=== PATIENT | female | born 1990 | race Caucasian/White ===

== ENCOUNTER 2017-05-27 10:10 | Emergency (ER) | payer OTHER ==
[~2017-05-27] VITALS: Ht 165.1 cm; Wt 116.0 kg
[2017-05-27 10:24] VITALS: TEMP 37; Ht 165.1 cm; Wt 116.0 kg
[2017-05-27] MEDS ORDERED: BCPILLS PO (11:32)
[2017-05-27] MEDS ORDERED: ZNTT/150 PO (11:32)
[2017-05-27] MEDS ORDERED: CITA10TA8 PO (11:32)
[2017-05-27] MEDS ORDERED: MECL1TAB42 PO (11:32)
--- NOTE | 2017-05-27 11:35 | EMERGENCY ROOM VISIT NOTE ---
History First contact with patient: 10:51 Chief Complaint: NEEDLE STICK Stated Complaint: CUT THUMB ON DIRTY INSTRUMENT;WORKERS COMP Nursing Triage Summary: was cleaning dirty instruments and picked up a pair of scissors and has a lac to left thumb. History of Present Illness The patient is a 26 year old female who presents to the Emergency Room with complaints of "cut thumb on dirty instrument". 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 The source patient is identified. The attending physician who performed surgery on the patient is Dr. Clark. The patient notes her tetanus is up-to-date. There is minimal tingling at the location of the small laceration. Review of Systems A complete 6-point Review of Systems was discussed with the patient, with pertinent positives and negatives listed in the History of Present Illness. All remaining Review of Systems questions can be considered negative unless otherwise specified. Past Medical/Surgical History Noncontributory Family History Noncontributory. Social History Smoking Status: Never Smoker Patient was locally with family. Current/Historical Medications Scheduled Control Pills ( Control Pills), 1 TAB PO DAILY Citalopram Hydrobromide (Celexa), Unknown Dose PO DAILY Meclizine Hcl (Meclizine Hcl), 1 TAB PO DAILY Scheduled PRN Ranitidine (Zantac), Unknown Dose PO BID PRN for Nausea Physical Exam Vital Signs Date Time Temp Pulse Resp B/P (MAP) Pulse Ox O2 Delivery O2 Flow Rate FiO2 05/27/17 11:40 80 16 126/84 98 05/27/17 10:24 37.0 80 16 126/84 98 Room Air Physical Exam VITAL SIGNS - Vital signs and nursing notes were reviewed. Stable. GENERAL -26-year-old female appearing her stated age who is in no acute distress. Communicates well with provider and answers questions appropriately. SKIN - Without rashes. No petechial rashes. There is a small, 1 cm superficial laceration at the distal aspect of the left first digit. No active bleeding noted. EXTREMITIES - full range of motion of the left thumb. No active bleeding. No neurovascular deficit. Medical Decision & Procedures Medical Decision Patient was seen and evaluated as above. She presents to us today with left first digit pain. This is status post a sharps incident while working here. There was visible blood therefore will deem this is a significant exposure. Based on labs were obtained after performing the necessary paperwork. I did speak with . Giorgio Prater regarding the patient. This is with [facility]. Baseline labs will be drawn on the source patient. Patient should be notified by the department regarding results. Her wound was cleansed. She appears stable for outpatient management. She was educated upon management, educated upon worrisome symptoms in which to return, had questions answered prior to discharge, and was discharged home in good condition. In evaluation treatment this patient the following differential diagnoses were entertained: Laceration, significant exposure, among others. Impression Primary Impression: Sharps injury Additional Impression: Thumb laceration Departure Information Dispostion Home / Self-Care Condition GOOD Referrals No Doctor, Assigned (PCP) Patient Instructions My [facility] Additional Instructions You were seen in the emergency Department for sharps injury to her thumb. At this time you have submitted to baseline testing. The source patient will also be tested. You'll be notified upon the test results. This should be through [facility]. Please call back in the ER if you do not receive results. [phone] Please keep the thumb clean. Please keep area covered Please return for any new/concerning symptoms. Problem Qualifiers
[2017-05-27 11:40] VITALS: BP 126/84; PULSE 80; O2SAT 98
== END 2017-05-27 11:41 | disposition home or self-care (01) ==
LOC: C.EDB 10:12 → C.EDD 11:41
DX: S61.012A Laceration without foreign body of left thumb without damage to nail, initial encounter (principal); W45.8XXA Other foreign body or object entering through skin, initial encounter; Z79.899 Other long term (current) drug therapy

== ENCOUNTER 2019-01-28 13:18 | Inpatient (IN) ==
[2019-01-28] MEDS ORDERED: miSOPROStol 50 MCG TAB PO ONE (20:01)
[2019-01-28] MEDS ORDERED: OXYTOCIN 30 UNITS/500 ML BAG IV PRN (20:01)
[2019-01-28 20:24] LABS: Hematocrit (blood only) 35.7 % (37-47); Mean Platelet Volume 9.8 fL (7.4-10.4); Platelet Count 300 K/uL (130-400); RDW Coefficient of Variation 12.9 % (11.5-14.5); RDW Standard Deviation 39.1 fL (36.4-46.3); Red Blood Count 4.25 M/uL (4.2-5.4); White Blood Count 17.53 K/uL (4.8-10.8)
[2019-01-28 20:48] LABS: Mean Corpuscular Hgb Conc 33.6 g/dL (32-36)
[2019-01-29] MEDS ORDERED: miSOPROStol 50 MCG TAB ONE (02:24)
[2019-01-29] MEDS ORDERED: miSOPROStol 50 MCG TAB PO SCH (06:00)
[2019-01-29] MEDS ORDERED: OXYTOCIN 30 UNITS/500 ML BAG IV PRN ×2 (07:08→21:40)
[2019-01-29] MEDS ORDERED: Nursing to Pharmacy Communication ONE (07:14)
[2019-01-29] MEDS: LACTATED RINGER'S 1,000 ML IV PRN ×3 (07:38→14:51)
[2019-01-29] MEDS ORDERED: ePHEDrine sulfate 50 MG/ML AMP ONE (09:53)
[2019-01-29] MEDS ORDERED: BUPIVACAINE 0.25% 30 ML VIAL ONE (09:53)
[2019-01-29] MEDS ORDERED: fentaNYL citrate 100 MCG/2 ML VIAL ONE (09:54)
[2019-01-29] MEDS ORDERED: fentaNYL 2MCG/ML ROPIV 1.25MG/ML 100 ML BAG EPI ONE ×2 (09:54→18:27)
[2019-01-29] MEDS ORDERED: ONDANSETRON INJ 2 MG/ML 2 ML VIAL IV PRN (10:25)
[2019-01-29] MEDS ORDERED: NALOXONE HCL 1 MG in SODIUM CHLORIDE 0.9% 1000ML 1,000 ML IV PRN (10:25)
[2019-01-29] MEDS ORDERED: ePHEDrine sulfate 50 MG/ML AMP IV PRN (10:25)
[2019-01-29] MEDS ORDERED: fentaNYL 2MCG/ML ROPIV 1.25MG/ML 100 ML BAG EPI PRN (10:25)
[2019-01-29] MEDS ORDERED: NALBUPHINE HCL INJ 10 MG/ML AMP IV PRN (10:25)
[2019-01-29] MEDS ORDERED: DiphenhydrAMINE HCL 50 MG/ML VIAL IV PRN (10:25)
[2019-01-29] MEDS ORDERED: NALOXONE HCL 0.4 MG/1 ML VIAL/CARP IV PRN (10:25)
[2019-01-29] MEDS ORDERED: PROMETHAZINE HCL 6.25 MG in SODIUM CHLORIDE 0.9% 50 ML IV PRN (10:25)
--- NOTE | 2019-01-29 10:32 | Anesthesiology Consultation ---
Date of Service January 29, 2019 Assessment & Plan (1) Encounter for pre-operative examination: Chart Review Chart Review: Patient NOT seen in Pre Admission Testing and Acceptable Risk for Labor Epidural Consults Requested none ASA ASA2 Proposed Anesthesia Anesthesia Type: Labor Epidural Risk / Benefits Reviewed With: PT / POA / Parent / Guardian, Accepts Plan and Informed Consent Obtained History Height/Weight Height: 5 ft 5 in Weight: 116.12 kg Allergies Allergy/AdvReac Type Severity Reaction Status Date / Time codeine Allergy Mild Nausea Verified 01/22/19 11:21 morphine AdvReac Intermediate Nausea Verified 12/18/18 11:44 Medications Home Medications Medication Instructions Recorded Confirmed Last Taken sertraline 25 mg PO DAILY 01/28/19 01/28/19 01/28/19 Active Medications Generic Name Dose Route Start Last Admin Trade Name Freq PRN Reason Stop Dose Admin Lactated Ringer's 1,000 mls @ 125 mls/hr 01/28/19 20:01 01/29/19 10:28 Lr IV 01/30/19 20:00 125 mls/hr .Q8H PRN Administration L&D Protocol Protocol Oxytocin 30 units in 500 mls @ 8 mls/hr 01/29/19 07:08 01/29/19 09:45 Pitocin IV 01/31/19 07:07 0.48 units/hr .Q24H PRN 8 mls/hr Labor Induction/Augmentation Titration Protocol 0.48 UNITS/HR NPO Date Last Intake of Fluids: 01/29/19 Time Last Intake of Fluids: 06:00 Date Last Intake of Solids: 01/29/19 Time Last Intake of Solids: 06:00 Past Medical History Medical History Anxiety Vertigo Acne Asthma GERD (gastroesophageal reflux disease) Pneumonia Vertigo Exercise / Class Metabolic Activity II 4-5 Yardwork/Stairs/Walk up hill Past Family History Family History Father Gallbladder disease Hypertension Grandmother Breast cancer Diabetes Heart disease Grandfather Colon cancer Past Surgical History Surgical History Status post tonsillectomy and adenoidectomy Past Anesthesia History No Hx of Anesthesia Complications and No Family Hx of Anesthesia Complications History of PONV No Hx of PONV and No Hx of Motion Sickness Social History Smoking Status: Never smoker Hx Alcohol Use: No Hx Substance Use: No substance use type: does not use Physical Exam Vital Signs Last Vital Signs Temp 37.0 C 01/29/19 09:35 Pulse 97 H 01/29/19 10:29 Resp 20 01/29/19 09:35 BP 124/75 01/29/19 09:35 Pulse Ox 96 01/29/19 10:29 ENMT Mouth: no dentition abnormality Thyromental Distance: > or= 3.5 Finger Breadths Mallampati Class: II Neck normal visual inspection Respiratory normal respiratory effort Auscultation: lungs clear to auscultation bilaterally Cardiovascular Rate/Rhythm: regular rate and regular rhythm Psychiatric Orientation: alert Testing Laboratory Results 01/28/19 20:14
[2019-01-29] MEDS ORDERED: ACETAMINOPHEN W/CODEINE #3 1 TAB PO PRN (21:40)
[2019-01-29] MEDS ORDERED: ACETAMINOPHEN 325 MG TAB PO PRN (21:40)
[2019-01-29] MEDS ORDERED: HYDROCORTISONE ACETATE 25 MG SUPP PR PRN (21:40)
[2019-01-29] MEDS ORDERED: OXYCODONE/ACETAMINOPHEN 5mg/325mg TAB PO PRN (21:40)
[2019-01-29] MEDS ORDERED: SUPERCREAM 0.870% 15 GM JAR EXT PRN (21:40)
[2019-01-29] MEDS ORDERED: DIPHTHERIA/TETANUS/PERTUSSIS 0.5 ML SYR/VIAL IM ONE (21:40)
[2019-01-29] MEDS ORDERED: BENZOCAINE 20% AER SPR 82.5 GM CAN EXT PRN (21:40)
[2019-01-29] MEDS ORDERED: BISACODYL 10 MG SUPP PR PRN (21:40)
[2019-01-29] MEDS ORDERED: SERTRALINE HCL 50 MG TABLET PO ONE ×2 (21:44)
[2019-01-29] MEDS: IBUPROFEN 600 MG TAB PO PRN (23:19)
--- NOTE | 2019-01-30 00:02 | Operative Report ---
DATE OF OPERATION: 01/29/2019 Mrs. Issa is followed in our office for care and delivery. She is a 28-year-old, 1, para 1. Blood type is B positive. She is rubella immune. Due date confirmed by early ultrasound, 02/05/2019. Vaginal beta strep negative. She developed toxemia of at about 38 weeks. Saw her several times in the office, put her on bed rest, had her come in to the hospital, and did an NST. When she got to be 39 weeks, she was brought in for induction. On the day of admission, she was about 2 cm dilated, cervix was relatively soft. She came in the evening prior to delivery at about 7:00 to 8:00 p.m. During the night, she was given 2 doses of p.o. Cytotec 50 mcg. The following day, she was about 4 cm and she was started on IV Pitocin. On the IV Pitocin, she started to dilate at about 5+ cm. She received epidural anesthesia for pain control. We continued to use the Pitocin. She went to full dilatation, pushed out a live male via direct occiput anterior position over an intact perineum. Infant was suctioned thoroughly through the mouth and the nose after delivery of the head. Shoulders were delivered without difficulty. Cord was clamped, cut by the father. Cord blood was taken. With IV Pitocin running, we removed the placenta intact. Following this, inspection of the perineum revealed a right sulcus laceration and a superficial laceration of the introitus at about 4:00. Started with the deep laceration on the patient's right side, identified the top of the defect and then sutured it with wide bites of 2-0 Vicryl out and to beyond the hymenal ring. Then on the other side, we did the same thing, just identified the defect, sutured it with continuous 2-0 Vicryl. Following this vag examination, we removed all vaginal sponges, palpated to make sure that the defect was closed, then did a rectovaginal examination to make sure there were no sponges through the rectum. Estimated blood loss was 200 mL. The patient tolerated the procedure well. I attest to the content of the Intraoperative Record and any orders documented therein. Any exception s are noted below.
[2019-01-30 06:31] LABS: Hematocrit (blood only) 32.9 % (37-47); Hemoglobin 10.8 g/dL (12.0-16.0); Mean Corpuscular Hgb Conc 32.8 g/dL (32-36); Mean Corpuscular Volume 84.6 fL (80-100); Mean Platelet Volume 9.5 fL (7.4-10.4); Platelet Count 285 K/uL (130-400); RDW Coefficient of Variation 13.2 % (11.5-14.5); Red Blood Count 3.89 M/uL (4.2-5.4); White Blood Count 21.63 K/uL (4.8-10.8)
[2019-01-30] MEDS: IBUPROFEN 600 MG TAB PO PRN ×4 (06:37→22:15)
[2019-01-30] MEDS: PRENATAL VITAMIN 1 TAB PO SCH (08:45)
[2019-01-30] MEDS: DOCUSATE SODIUM 100 MG CAP PO SCH ×2 (08:45→20:28)
[2019-01-30] MEDS: SERTRALINE HCL 50 MG TABLET PO SCH (08:46)
--- NOTE | 2019-01-30 15:01 | Obstetrical Progress Note ---
Date of Service January 30, 2019 Physical Exam Physical Exam: abdomen soft and non tender vaginal bleeding scant to moderate no calf tenderness ambulating well Results & Data Vital Signs (Past 12 Hours) Vital Signs Temp Pulse Resp BP 01/30/19 13:08 36.5 C 76 20 129/80 01/30/19 07:55 36.9 C 77 20 101/64 01/30/19 04:25 36.7 C 73 18 115/71
[2019-01-30] MEDS ORDERED: BISACODYL 5 MG TABEC PO SCH (20:00)
[2019-01-31] MEDS: IBUPROFEN 600 MG TAB PO PRN ×2 (05:46→12:33)
[2019-01-31 06:45] LABS: Hematocrit (blood only) 31.3 % (37-47); Hemoglobin 10.6 g/dL (12.0-16.0)
[2019-01-31] MEDS: SERTRALINE HCL 50 MG TABLET PO SCH (08:51)
[2019-01-31] MEDS: DOCUSATE SODIUM 100 MG CAP PO SCH (08:51)
[2019-01-31] MEDS: PRENATAL VITAMIN 1 TAB PO SCH (08:52)
--- NOTE | 2019-01-31 12:07 | Obstetrical Progress Note ---
Date of Service January 31, 2019 Physical Exam Physical Exam: abdomen soft and non tender vaginal bleeding scant no calf tenderness ambulating well Results & Data Vital Signs (Past 12 Hours) Vital Signs Temp Pulse Resp BP Pulse Ox 01/31/19 07:25 36.7 C 76 18 113/75 98
== END 2019-01-31 13:00 | disposition home or self-care (01) | DRG 807 ==
LOC: 4S1 19:31 → 4S2 01-30 00:14

== ENCOUNTER 2022-01-07 11:36 | Observation (INO) ==
[2022-01-07] MEDS ORDERED: SODIUM CHLORIDE 0.9% 1000ML 2,000 ML IV ONE (12:02)
--- NOTE | 2022-01-07 12:08 | Emergency Department Note ---
Impression & Plan Ectopic , Vaginal bleeding, Abdominal pain, Hemoperitoneum ED Provider Note NAME: ALICE DOMINGUEZ AGE: 31 SEX: F : 1990 ARRIVES VIA: Ambulance INFORMANT: Patient ED PROVIDER(S): Richard Silva DO CHIEF COMPLAINT: LLQ abd pain HPI: Patient is a 31-year-old female who presents to the ER who is a with a known ectopic. Last menstrual period was December 12. Last week she started having some brownish vaginal discharge and followed up with OB following a positive test and was found to have the ectopic. She was given methotrexate on Friday or Friday of last week. She started having some cramping on Friday. She had bleeding which started on Friday. She is going through thin pad once every several hours. She called Dr. Barbosa and was referred in. Denies any headache or change in vision. No chest pain or shortness of breath. No dysuria urgency or frequency. No other exacerbating or remitting factors. ROS: See above HPI for pertinent positives & negatives. A total of 10 systems reviewed and were otherwise negative. PAST MEDICAL HISTORY:See Below PAST SURGICAL HISTORY:See Below FAMILY HISTORY:See Below SOCIAL HISTORY:See Below HOME MEDICATIONS:See Below ALLERGIES:See Below VITALS:See Below PHYSICAL EXAMINATION: GENERAL: Sitting up in bed, alert, well appearing, well nourished, no distress, non-toxic EYE EXAM: normal conjunctiva. OROPHARYNX: no exudate, no erythema, lips, buccal mucosa, and tongue normal and mucous membranes are moist NECK: supple, no nuchal rigidity, no adenopathy, non-tender LUNGS: Clear to auscultation. Normal chest wall mechanics HEART: no murmurs, S1 normal and S2 normal ABDOMEN: abdomen soft, non-tender, normo-active bowel sounds, no masses, no rebound or guarding. BACK: Back is symmetrical on inspection and there is no deformity, no midline tenderness, no CVA tenderness. UPPER EXTREMITIES: upper extremities are grossly normal. LOWER EXTREMITIES: No pitting edema. NEURO EXAM: Normal sensorium, cranial nerves II-XII grossly intact, normal speech, no gross weakness of arms, no gross weakness of legs. MEDICAL DECISION MAKING: Is a 31-year-old female with known ectopic who presents the ER for left-sided abdominal pain and vaginal bleeding. IV was established blood was obtained. Labs show no significant leukocytosis. Hemoglobin is consistent with previous at 11.5. She was slightly hypotensive initially and was given IV fluids and is trended up. BMP along with LFTs, bilirubin was unremarkable. hCG was 3000 and nearly unchanged from previous. Ultrasound confirms an ectopic with some questionable hemorrhage. Patient was seen and evaluated admitted by Drs. Conway. She remained hemodynamically stable while in the ER. Triage Nursing notes reviewed. Limited review of prior medical records performed Vital Signs: reviewed and remarkable for hypotension Differential diagnosis: Differential diagnoses includes but is not limited to gastritis, peptic ulcer disease, GERD, gallbladder disease, pancreatitis, small bowel obstruction, acute coronary syndrome, pericarditis, ischemic bowel, irritable bowel disease, irritable bowel syndrome, appendicitis, diverticulitis, malignancy, hernia, urinary tract infection, torsion, /ectopic (if female), perforation, trauma, infectious. ER treatment provided: See below Diagnostics interpreted by me: ECG: none Cardiac Monitoring: An order was placed for continuous cardiac monitoring. The monitor shows a rate of 86 with sinus rhythm. Laboratory studies: As stated above and show below. Imaging studies: Ultrasound confirms ectopic with questionable hemorrhage Consultation(s): Patient was admitted by Dr. Gordon Procedures: none Critical Care: None Past Med/Surg History Medical History (Updated 01/07/22 @ 16:31 by Richard Silva DO) Acne Anxiety Asthma GERD (gastroesophageal reflux disease) Pneumonia Vertigo Surgical History Status post tonsillectomy and adenoidectomy Family History Father Gallbladder disease Hypertension Grandmother Breast cancer Diabetes Heart disease Grandfather Colon cancer Social History Smoking Status: Never smoker Hx Alcohol Use: No Hx Substance Use: No Preferred Language: Cambodian Communication Ability: Effective Academic Support Center Director Required: No Beliefs That Will Affect Care: None marital status: Single Current Living Situation: Spouse Current Living Situation Comment: Lives with Kirk Richard current occupational status: employed 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 Feels Safe at Home: Yes Dental Care, Regularly: No Physical Activity Frequency: Does not Exercise Assistive Devices: None Allergies Allergies Allergy/AdvReac Type Severity Reaction Status Date / Time codeine Allergy Mild Nausea Verified 01/01/22 20:30 ondansetron AdvReac Severe Nausea Verified 01/01/22 21:18 morphine AdvReac Intermediate Nausea Verified 01/01/22 20:30 Home Meds Home Medications Medication Instructions Recorded Confirmed calcium carbonate 600 mg-vitamin 1 tab PO DAILY 01/01/22 01/01/22 D3 10 mcg (400 unit) tablet (Calcium 600 + D(3)) cholecalciferol (vitamin D3) 25 25 mcg PO DAILY 01/01/22 01/01/22 mcg (1,000 unit) tablet (Vitamin D3) cyanocobalamin (vitamin B-12) 3,000 mcg sublingual DAILY 01/01/22 01/01/22 1,000 mcg sublingual tablet multivitamin with minerals-folic 1 tab PO DAILY 01/01/22 01/01/22 acid 150 mcg chewable tablet Results & Data (ED) Vital Signs Vital Signs - 24 hr 01/07/22 11:44 01/07/22 11:44 01/07/22 12:33 Temperature 36.6 C Temperature Source Oral Pulse Rate 71 67 Pulse Rate [Apical] 71 Pulse Rate from SpO2 Sensor Respiratory Rate 20 20 20 Respiratory Effort / Characteristics Non-Labored Spontaneous Non-Labored Spontaneous Respiratory Depth Normal Normal Respiratory Pattern Regular Regular Blood Pressure 97/60 L Blood Pressure [Right Arm] 97/60 L Blood Pressure Mean 72 Blood Pressure Mean [Right Arm] 72 Pulse Oximetry 97 97 100 Oxygen Delivery Method Room Air Room Air Room Air Sepsis Recent Fever Within 48 Hours No Sepsis New/Unexplained Change in Mental Status No Sepsis Action Taken by Nursing No Action Required 01/07/22 11:41 01/07/22 11:54 01/07/22 11:54 Temperature Temperature Source Pulse Rate 73 Pulse Rate [Apical] Pulse Rate from SpO2 Sensor 71 Respiratory Rate 17 Respiratory Effort / Characteristics Respiratory Depth Respiratory Pattern Blood Pressure 97/60 L 112/67 Blood Pressure [Right Arm] Blood Pressure Mean 72 82 Blood Pressure Mean [Right Arm] Pulse Oximetry 100 Oxygen Delivery Method Sepsis Recent Fever Within 48 Hours Sepsis New/Unexplained Change in Mental Status Sepsis Action Taken by Nursing 01/07/22 12:00 01/07/22 12:00 01/07/22 12:30 Temperature Temperature Source Pulse Rate 71 73 Pulse Rate [Apical] Pulse Rate from SpO2 Sensor 75 Respiratory Rate 20 20 Respiratory Effort / Characteristics Respiratory Depth Respiratory Pattern Blood Pressure 104/63 Blood Pressure [Right Arm] Blood Pressure Mean 76 Blood Pressure Mean [Right Arm] Pulse Oximetry 100 Oxygen Delivery Method Sepsis Recent Fever Within 48 Hours Sepsis New/Unexplained Change in Mental Status Sepsis Action Taken by Nursing 01/07/22 14:00 01/07/22 14:30 Temperature Temperature Source Pulse Rate 72 78 Pulse Rate [Apical] Pulse Rate from SpO2 Sensor 74 80 Respiratory Rate 16 17 Respiratory Effort / Characteristics Respiratory Depth Respiratory Pattern Blood Pressure 110/72 Blood Pressure [Right Arm] Blood Pressure Mean 84 Blood Pressure Mean [Right Arm] Pulse Oximetry 100 100 Oxygen Delivery Method Room Air Sepsis Recent Fever Within 48 Hours Sepsis New/Unexplained Change in Mental Status Sepsis Action Taken by Nursing Laboratory Data Result diagrams: 01/07/22 12:27 01/07/22 12:27 Lab Results 01/07/22 01/07/22 01/07/22 Range/Units 11:56 12:27 12:27 WBC 8.75 (4.8-10.8) K/ul RBC 3.92 L (3.93-5.22) M/uL Hgb 11.5 L (12.0-16.0) g/dl Hct 34.1 (34.1-44.9) % MCV 87.0 (80.0-100.0) fL MCH 29.3 (25.0-34.0) pg MCHC 33.7 (32.0-36.0) g/dL RDW Std Deviation 39.4 (36.4-46.3) fL RDW Coeff of [place] 12.3 (11.5-14.5) % Plt Count 258 (130-400) K/uL MPV 9.1 L (9.4-12.3) fL Immature Gran % (Auto) 0.9 % Neut % (Auto) 70.0 % Lymph % (Auto) 23.0 % [place] % (Auto) 4.7 % Eos % (Auto) 0.8 % Baso % (Auto) 0.6 % Neut # (Auto) 6.13 (1.4-6.5) K/uL Lymph # (Auto) 2.01 (1.2-3.4) K/uL [place] # (Auto) 0.41 (0.24-0.82) K/uL Eos # (Auto) 0.07 (0-0.50) K/uL Baso # (Auto) 0.05 (0-0.2) K/uL Immature Gran # (Auto) 0.08 H (0.00-0.02) K/uL Sodium (136-145) mmol/L Potassium (3.5-5.1) mmol/L Chloride (98-107) mmol/L Carbon Dioxide (21-32) mmol/L Anion Gap (3-11) BUN (6-23) mg/dl Creatinine (0.6-1.2) mg/dl Est Cr Clr Drug Dosing ml/min Est GFR ( Amer) ml/min Est GFR (Non-Af Amer) ml/min BUN/Creatinine Ratio (10-20) Glucose (70-99(Fasting)) mg/dl Calcium (8.5-10.1) mg/dl Total Bilirubin (0.2-1.0) mg/dl AST (13-39) U/L ALT (7-52) U/L Alkaline Phosphatase (34-104) U/L Total Protein (6.0-8.3) gm/dl Albumin (3.4-5.0) gm/dl Globulin (2.5-4.0) gm/dl Albumin/Globulin Ratio (0.9-2) HCG, Quant mIU/ml Urine Color Yellow Urine Appearance Clear (Clear) Urine pH 8.0 H (4.5-7.5) Ur Specific [place] 1.006 (1.000-1.030) Urine Protein Negative (Negative) Urine Glucose (UA) Negative (Negative) Urine Ketones Negative (Negative) Urine Blood 2+ H (Negative) Urine Nitrite Negative (Negative) Urine Bilirubin Negative (Negative) Urine Urobilinogen Negative (Negative) Ur Leukocyte Esterase Negative (Negative) Urine WBC (Auto) 0 (0-5) /hpf Urine RBC (Auto) >30 H (0-4) /hpf U Hyaline Cast (Auto) 0 (0-5) /lpf U Epithel Cells (Auto) 5-10 H (0-5) /lpf Urine Bacteria (Auto) Negative (Negative) SARS-CoV-2, RNA, NAAT (NEGATIVE) Blood Type B Positive Antibody Screen NEGATIVE 01/07/22 01/07/22 01/07/22 Range/Units 12:27 12:27 15:00 WBC (4.8-10.8) K/ul RBC (3.93-5.22) M/uL Hgb (12.0-16.0) g/dl Hct (34.1-44.9) % MCV (80.0-100.0) fL MCH (25.0-34.0) pg MCHC (32.0-36.0) g/dL RDW Std Deviation (36.4-46.3) fL RDW Coeff of [place] (11.5-14.5) % Plt Count (130-400) K/uL MPV (9.4-12.3) fL Immature Gran % (Auto) % Neut % (Auto) % Lymph % (Auto) % [place] % (Auto) % Eos % (Auto) % Baso % (Auto) % Neut # (Auto) (1.4-6.5) K/uL Lymph # (Auto) (1.2-3.4) K/uL [place] # (Auto) (0.24-0.82) K/uL Eos # (Auto) (0-0.50) K/uL Baso # (Auto) (0-0.2) K/uL Immature Gran # (Auto) (0.00-0.02) K/uL Sodium 140 (136-145) mmol/L Potassium 3.6 (3.5-5.1) mmol/L Chloride 107 (98-107) mmol/L Carbon Dioxide 26 (21-32) mmol/L Anion Gap 7 (3-11) BUN 7 (6-23) mg/dl Creatinine 0.57 L (0.6-1.2) mg/dl Est Cr Clr Drug Dosing 161.9 ml/min Est GFR ( Amer) 145.2 ml/min Est GFR (Non-Af Amer) 125.3 ml/min BUN/Creatinine Ratio 12.3 (10-20) Glucose 87 (70-99(Fasting)) mg/dl Calcium 9.3 (8.5-10.1) mg/dl Total Bilirubin 0.7 (0.2-1.0) mg/dl AST 18 (13-39) U/L ALT 15 (7-52) U/L Alkaline Phosphatase 59 (34-104) U/L Total Protein 6.7 (6.0-8.3) gm/dl Albumin 4.1 (3.4-5.0) gm/dl Globulin 2.6 (2.5-4.0) gm/dl Albumin/Globulin Ratio 1.6 (0.9-2) HCG, Quant 3041 mIU/ml Urine Color Urine Appearance (Clear) Urine pH (4.5-7.5) Ur Specific [place] (1.000-1.030) Urine Protein (Negative) Urine Glucose (UA) (Negative) Urine Ketones (Negative) Urine Blood (Negative) Urine Nitrite (Negative) Urine Bilirubin (Negative) Urine Urobilinogen (Negative) Ur Leukocyte Esterase (Negative) Urine WBC (Auto) (0-5) /hpf Urine RBC (Auto) (0-4) /hpf U Hyaline Cast (Auto) (0-5) /lpf U Epithel Cells (Auto) (0-5) /lpf Urine Bacteria (Auto) (Negative) SARS-CoV-2, RNA, NAAT NEGATIVE (NEGATIVE) Blood Type Antibody Screen Administered Medications Discontinued Medications Sodium Chloride (Nss 1000ml) 2,000 mls @ 999 mls/hr IV .Q2H1M ONE Stop: 01/07/22 14:02 Last Infusion: 01/07/22 14:47 Dose: 0 mls/hr Documented By: Admin: 01/07/22 12:34 Dose: 999 mls/hr Documented By: ELENA Imaging Data Radiologist's Impression: Ultrasound 01/07/22 12:02 US OB <= 14 weeks fetus CLINICAL HISTORY: Known ectopic . Follow-up. COMPARISON STUDY: Obstetrical ultrasound 07/01/2018. FINDINGS: Transabdominal scanning of the pelvis performed with claim representative images submitted. Normal uterus. The endometrium is 1 mm in thickness. No evidence for an intrauterine gestational sac. Normal right ovary demonstrates normal color flow. The left ovary is also identified and appears normal in size and demonstrates normal color flow. Also within the left adnexa there is a heterogeneous adnexal lesion which measures approximately 7.7 x 5.0 x 5.0 cm. This appears to be surrounding or adjacent to the left ovary. In the setting of a positive test this is highly suspicious for an ectopic . Incidental note is made of a tubular cystic focus within the right upper quadrant measuring 11 x 5 x 5 cm which contains a small amount of internal echoes. This could represent a small pocket of hemorrhage in the setting of a ru ptured ectopic . IMPRESSION: 1. A 7.7 x 5.2 x 5.0 cm heterogeneous left adnexal lesion which is adjacent to or surrounds the left ovary. In the setting of positive test this is highly suspicious for an ectopic . 2. An 11 x 5 x 5 cm focus of slightly complex fluid within the right upper quadrant. This could represent a focus of hemorrhage in the setting of a ruptured ectopic . 3. No evidence for intrauterine gestational sac. 4. Normal right ovary. 5. Urgent gynecologic consultation recommended. ACT 112: Negative or not required by law. Electronically signed by: Jack Mary M.D. 01/07/2022 2:02 PM Discharge Plan Visit Data Chief Complaint: Abdominal Pain ED Provider: Ricahrd Silva Discharge Problem: Ectopic , Vaginal bleeding, Abdominal pain, Hemoperitoneum Patient Disposition: Admitted As Inpatient Discharge Instructions Interventions: ED Discharge Assessment Last Done: 01/07/22 14:51 Forms Stand Alone Forms: [facility], [facility] Emergency Department, Important Visit Information Prescriptions Prescriptions: No Action cyanocobalamin (vitamin B-12) [Vitamin B-12] 1,000 mcg Tablet, Sublingual 3,000 mcg SUBLINGUAL DAILY Rx Instructions: pt using gummies cholecalciferol (vitamin D3) [Vitamin D3] 25 mcg (1,000 unit) Tablet 25 mcg PO DAILY calcium carbonate-vitamin D3 [Calcium 600 + D(3)] 600 mg-10 mcg (400 unit) Tablet 1 tab PO DAILY Centrum MultiGummies 150 mcg Tablet,Chewable 1 tab PO DAILY Rx Instructions: pt using gummies Referrals Referrals: PCP,NO [Primary Care Provider] -
[2022-01-07 12:26] LABS: Appearance Urine Clear (Clear); Bacteria Urine Automated Negative (Negative); Bilirubin Urine Negative (Negative); Blood Urine 2+ (Negative); Cast Urine Automated 0 /lpf (0-5); Color Urine Yellow; Glucose Urine UA Negative (Negative); Ketones Urine Negative (Negative); Leukocyte Esterase Urine Negative (Negative); Nitrite Urine Negative (Negative); Protein Urine Negative (Negative); RBC Urine Automated >30 /hpf (0-4); Specific Gravity Urine 1.006 (1.000-1.030); Urobilinogen Urine Negative (Negative); WBC Urine Automated 0 /hpf (0-5)
[2022-01-07 12:46] LABS: Basophils # (auto) 0.05 K/uL (0-0.2); Basophils % (auto) 0.6 %; Eosinophils # (auto) 0.07 K/uL (0-0.50); Eosinophils % (auto) 0.8 %; Hematocrit (blood only) 34.1 % (34.1-44.9); Hemoglobin 11.5 g/dl (12.0-16.0); Immature Granulocytes # (auto) 0.08 K/uL (0.00-0.02); Immature Granulocytes % (auto) 0.9 %; Lymphocytes # (auto) 2.01 K/uL (1.2-3.4); Mean Corpuscular Hemoglobin 29.3 pg (25.0-34.0); Mean Corpuscular Hgb Conc 33.7 g/dL (32.0-36.0); Mean Platelet Volume 9.1 fL (9.4-12.3); Monocytes # (auto) 0.41 K/uL (0.24-0.82); Monocytes % (auto) 4.7 %; Neutrophils # (auto) 6.13 K/uL (1.4-6.5); Platelet Count 258 K/uL (130-400); RDW Coefficient of Variation 12.3 % (11.5-14.5); RDW Standard Deviation 39.4 fL (36.4-46.3); Red Blood Count 3.92 M/uL (3.93-5.22); White Blood Count 8.75 K/ul (4.8-10.8)
--- NOTE | 2022-01-07 13:33 | History and Physical Report ---
DATE OF ADMISSION: 01/07/2022 CHIEF COMPLAINT: Acute-onset pelvic pain, history of left-sided ectopic, being actively treated. HISTORY OF PRESENT ILLNESS: The patient is a 31-year-old 2, para 1. She had her first child in 01/2019, no problems. She underwent a gastric bypass in 07/2020, has lost over 100 pounds. Her present began with irregular periods. She had an irregular period on 12/12/2021. Then, e had beta units. On 12/26, beta units were 703. On 12/28, beta units were 1000, and then on 12/31, t hey were 1500. Following day, she had a transvaginal ultrasound in the office that showed a left-lulu ed ectopic , small amount of fluid. She was sent to the ER where she received IM methotrexa te 88 mg. She returned to the hospital today with acute onset of left-sided pelvic pain. Ultrasound was performed. I reviewed the results of the ultrasound. Her ectopic size was 2.7 x 1.6 x 1.9 cm. There was clot around it, making the whole left-sided adnexal mass about 5 x 5 x 7 cm and that inclu ded the ovary. There was a small amount of pelvic fluid up by the left kidney, which looked to be a clot. ALLERGIES: She has no known drug allergies. PAST SURGICAL HISTORY: She had a T and A as a child. She had a gastric bypass in 2020. PAST MEDICAL HISTORY: No history of rheumatic fever, heart disease, heart murmur, diabetes, or tuber culosis. SOCIAL HISTORY: No smoking, no excessive alcohol intake. She is employed. FAMILY HISTORY: She has a boy at home. Mom is 50; at age 32, had a SOFI for endometriosis. Father 5 6, has high blood pressure. One brother in good health. REVIEW OF SYSTEMS: HEAD: No symptoms of frequent or severe headaches. EYES: No symptoms of blurred vision or double vision. EARS: No symptoms of frequent ear infection or difficulty hearing. PHYSICAL EXAMINATION: GENERAL: Well-developed, well-nourished 31-year-old white female, alert, oriented x3, cooperative, i n no acute distress, appeared her stated age. EYES: Conjunctivae pink. Sclerae white, no evidence of jaundice. ENT: Ears had normal light reflex bilaterally. Nose had normal mucosa. Septum is midline. There w ere no polyps. Throat had no erythema or evidence of infection. Teeth are in good state of repair. HEAD: Normocephalic, normal distribution of hair. NECK: Supple. Trachea midline. Thyroid is not enlarged. There is no adenopathy appreciated. Both carotids are of good intensity. CHEST: Clear to auscultation and percussion. ABDOMEN: Soft. There was some tenderness to palpation on the left side. PELVIS: Moderate amount of vaginal bleeding. EXTREMITIES: No calf tenderness. IMPRESSION OF THIS CASE: Status post gastric bypass, status post tonsillectomy and adenoidectomy, re solving left-sided ectopic with a small amount of intraperitoneal bleed. Job ID: [id number]
[2022-01-07 13:34] LABS: Albumin Globulin Ratio 1.6 (0.9-2); Albumin Level 4.1 gm/dl (3.4-5.0); BUN Creatinine Ratio 12.3 (10-20); Bilirubin,Total 0.7 mg/dl (0.2-1.0); Calcium 9.3 mg/dl (8.5-10.1); Creatinine Clr Calc Pharmacy 161.9 ml/min; Est GFR (African American) 145.2 ml/min; Est GFR (Non-African American) 125.3 ml/min; Globulin 2.6 gm/dl (2.5-4.0); Potassium 3.6 mmol/L (3.5-5.1); Total Protein 6.7 gm/dl (6.0-8.3)
--- NOTE | 2022-01-07 14:04 | Ultrasound Report ---
US OB <= 14 weeks fetus CLINICAL HISTORY: Known ectopic . Follow-up. COMPARISON STUDY: Obstetrical ultrasound 07/01/2018. FINDINGS: Transabdominal scanning of the pelvis performed with unit support representative images submitted. Stefanie l uterus. The endometrium is 1 mm in thickness. No evidence for an intrauterine gestational sac. Norm al right ovary demonstrates normal color flow. The left ovary is also identified and appears normal i n size and demonstrates normal color flow. Also within the left adnexa there is a heterogeneous adnex al lesion which measures approximately 7.7 x 5.0 x 5.0 cm. This appears to be surrounding or adjacent to the left ovary. In the setting of a positive test this is highly suspicious for an ecto pic . Incidental note is made of a tubular cystic focus within the right upper quadrant jareth uring 11 x 5 x 5 cm which contains a small amount of internal echoes. This could represent a small po cket of hemorrhage in the setting of a ruptured ectopic . IMPRESSION: 1. A 7.7 x 5.2 x 5.0 cm heterogeneous left adnexal lesion which is adjacent to or surrounds the left ovary. In the setting of positive test this is highly suspicious for an ectopic . 2. An 11 x 5 x 5 cm focus of slightly complex fluid within the right upper quadrant. This could repre sent a focus of hemorrhage in the setting of a ruptured ectopic . 3. No evidence for intrauterine gestational sac. 4. Normal right ovary. 5. Urgent gynecologic consultation recommended. ACT 112: Negative or not required by law. Electronically signed by: Jack Mary M.D. 01/07/2022 2:02 PM
[2022-01-07] MEDS: LACTATED RINGER'S 1,000 ML IV SCH (16:59)
[2022-01-07 20:28] LABS: Basophils # (auto) 0.05 K/uL (0-0.2); Basophils % (auto) 0.6 %; Eosinophils # (auto) 0.08 K/uL (0-0.50); Hematocrit (blood only) 32.4 % (34.1-44.9); Hemoglobin 10.3 g/dl (12.0-16.0); Immature Granulocytes # (auto) 0.04 K/uL (0.00-0.02); Immature Granulocytes % (auto) 0.5 %; Lymphocytes # (auto) 2.45 K/uL (1.2-3.4); Lymphocytes % (auto) 31.6 %; Mean Corpuscular Hgb Conc 31.8 g/dL (32.0-36.0); Mean Corpuscular Volume 91.3 fL (80.0-100.0); Mean Platelet Volume 9.3 fL (9.4-12.3); Monocytes # (auto) 0.52 K/uL (0.24-0.82); Monocytes % (auto) 6.7 %; Neutrophils # (auto) 4.62 K/uL (1.4-6.5); Neutrophils % (auto) 59.6 %; Platelet Count 245 K/uL (130-400); RDW Coefficient of Variation 12.4 % (11.5-14.5); RDW Standard Deviation 41.4 fL (36.4-46.3); Red Blood Count 3.55 M/uL (3.93-5.22); White Blood Count 7.76 K/ul (4.8-10.8)
[2022-01-08] MEDS: LACTATED RINGER'S 1,000 ML IV SCH (02:36)
[2022-01-08 07:34] LABS: Hematocrit (blood only) 29.5 % (34.1-44.9); Hemoglobin 9.8 g/dl (12.0-16.0)
--- NOTE | 2022-01-08 09:30 | Obstetrical Progress Note ---
Date of Service January 08, 2022 Assessment & Plan Admission and Anticipated Discharge Date Admission Date: January 07, 2022 Subjective abdomen soft vaginal bleeding scant present for repeat ultrasound decreased abdominal fluid will repeat beta units Results & Data ([facility]) Vital Signs (Past 12 Hours) Vital Signs Temp Pulse Pulse Resp BP Pulse Ox O2 Del Method 01/08/22 07:26 36.5 C 62 16 97/62 L Room Air 01/07/22 23:50 37.0 C 78 16 90/47 L 97 Room Air
--- NOTE | 2022-01-08 10:28 | Ultrasound Report ---
ULTRASOUND OF THE PELVIS CLINICAL HISTORY: Ectopic . COMPARISON STUDY: Pelvic CT dated 08/22/2011. Pelvic ultrasound dated 01/07/2022. TECHNIQUE: Real-time, grayscale, and color flow sonography of the pelvis is performed transabdominall y. Images are reviewed in the transverse and longitudinal planes. FINDINGS: Uterus: The uterus is normal in size and echotexture, measuring 8.0 x 3.9 x 4.8 cm. Endometrium: The endometrium is normal in appearance, and the endometrial stripe is normal in thickne ss measuring up to 0.2 cm. Fluid is noted in the endometrial canal. No intrauterine gestation is iden tified. Ovaries: The right ovary is normal as visualized, measuring 2.5 x 2.3 x 1.7 cm. The left ovary measur es 2.4 x 2.1 x 2.9 cm and is surrounded by complex adnexal lesion which likely resents an ectopic pre gnancy. Doppler waveforms are shown within both ovaries. Pelvis: Minimal free fluid is seen in the cul-de-sac. Trace free fluid is again seen adjacent to the spleen. Again seen is a complex/heterogeneous vascular mass lesion in the left adnexa measuring 7.1 x 5.4 x 5.1 cm. This is immediately adjacent to the left ovary and likely represents an ectopic pregna ncy. IMPRESSION: 1. Again seen is a 7.5 cm heterogeneous vascular soft tissue mass immediately adjacent to the left ov abbey. This appears modestly decreased in size from yesterday and remains highly suspicious for an ecto pic . There is no definite sonographic evidence of rupture at this time. Clinical correlatio n will be required. 2. No intrauterine gestation is identified. Trace fluid is noted in the endometrial canal. 3. There is a small amount of free fluid in the cul-de-sac, as well as trace fluid adjacent to the sp alexis. 4. Free fluid in the right upper quadrant seen yesterday is no longer identified. ACT 112: Negative or not required by law. Electronically signed by: Ousmane Moore M.D. 01/08/2022 10:26 AM
[2022-01-08 14:59] LABS: Hematocrit (blood only) 33.8 % (34.1-44.9)
--- NOTE | 2022-01-08 16:37 | Obstetrical Progress Note ---
Date of Service January 08, 2022 Assessment & Plan Admission and Anticipated Discharge Date Admission Date: January 07, 2022 Subjective abdomen soft and non tender hgb up to 11.0 Results & Data ([facility]) Vital Signs (Past 12 Hours) Vital Signs Temp Pulse Resp BP O2 Del Method 01/08/22 16:27 36.9 C 71 16 98/65 L Room Air 01/08/22 12:23 36.7 C 72 16 103/70 Room Air 01/08/22 07:26 36.5 C 62 16 97/62 L Room Air
--- NOTE | 2022-01-08 18:33 | Discharge Summary (DS) ---
DATE OF ADMISSION: 01/07/2022 DATE OF DISCHARGE: 01/08/2022 HOSPITAL COURSE: Amalia Cifuentes is followed in our office for care and delivery. She was diagnosed with having an ectopic a week prior to admission. She was sent from the office to the ER where she received 88 mg of methotrexate and she did well. The ectopic was located on the left side, it was not particularly large. Her beta units when she went to the ER to get her shot were 3000. She did well up until about 6 days later when she had acute abdominal pain, was take n to the ER by ambulance. At the time of admission, in the ER, her hemoglobin was 11.5. We did an ul trasound. It showed a small amount of intraperitoneal bleeding, little bit up by the liver and kidne ys and about a 5-6 cm complex mass on the left side consistent with an ectopic . I gave her IV fluids to fluid load her and then repeated the ultrasound the following morning. The ultrasound the following morning showed most of the free abdominal fluid was now gone and the adnexal mass size was the same. Her discomfort, which she came through the ER with, had quieted down. We subsequently did beta units on the day that she was discharged and her beta units had fallen from 3041 the night before to less than 24 hours later, they were down to 2667, so she had stable ultrasound and falling beta units. Also, her hemoglobin when she was admitted was 11.5. Repeated later that evening, it wa s 10.3. On the morning of discharge, it was 9.8 and then by 2:00 p.m. on the day of discharge, it chavez d risen to 11.0, so she had rising hemoglobins, falling beta units and decreased intraabdominal fluid on ultrasound. She was stable. She was not having any pain. She was then discharged to be followe d up at home and office and told to repeat her beta units on the following Friday that she is to have a beta unit every week until they essentially got to 0. She was also told to call the office if she had any pain or abdominal discomfort. Job ID: [id number]
== END 2022-01-08 17:40 | disposition home or self-care (01) ==
LOC: ED 11:36 → 4E1 11:36

== ENCOUNTER 2024-07-22 07:21 | Inpatient (IN) ==
[2024-07-22] MEDS ORDERED: LIDOCAINE 1% LOCAL 20 ML VIAL INFIL PRN (08:13)
[2024-07-22] MEDS ORDERED: CALCIUM CARBONATE 500 MG CHEWABLE TAB PO PRN (08:13)
[2024-07-22] MEDS ORDERED: OXYTOCIN 30 UNITS/NSS 30 UNITS/500 ML BAG IV PRN ×2 (08:13→21:00)
[2024-07-22 08:40] LABS: Hemoglobin 10.5 g/dl (12.0-16.0); Mean Corpuscular Hemoglobin 29.8 pg (25.0-34.0); Mean Corpuscular Hgb Conc 33.9 g/dL (32.0-36.0); Mean Corpuscular Volume 88.1 fL (80.0-100.0); Mean Platelet Volume 9.5 fL (9.4-12.4); Platelet Count 225 K/uL (130-400); RDW Standard Deviation 38.4 fL (36.4-46.3); Red Blood Count 3.52 M/uL (4.20-5.40); White Blood Count 11.97 K/ul (4.8-10.8)
[2024-07-22] MEDS: miSOPROStoL 50 MCG TAB PO ONE ×2 (08:52→13:01)
--- OUTSIDE RECORDS SUMMARY | 2024-07-22 11:22 | External Medical Summary | Summary of Care ---
Author Name Unknown Organization [facility] Address [address] [facility] [place] [address] Phone [phone] Care Team Providers Care Marinator Name Role Phone Unavailable Primary Care Provider Unavailabl e Reason for Visit * Reason Comments Return Visit Encounter Details Date Type Department Care Team (Late st Contact Info) Description 07/09/2024 5:00 PM EST Office Visit Gynecology/Obstetric s [place] [address] [place] [phone] Cielo Yeager PA-C [address] [place] [phone] Normal in first trimester*; History of gastric bypass; Unspecified ovarian cyst, left side; Antepartum anemia complicating Allergies Active Allergy Reactions Criticality Noted Date Comments Morphine And Codeine Nausea/vomiting Medium 08/10/2020 Nausea /dizziness Ondansetron 09/12/2021 Vomiting and nausea documented as of this encounter (statuses as of 07/10/2024) Medications meclizine (ANTIVERT) 25 MG TabletIndications :Vertigo 1 by mouth in am as needed for motion sickness 90 Tab 8 Active Vitron-C 65-125 MG Oral Tablet (Iron-Vitamin C 65-125 mg per tab) Take 1 Tablet by mouth in the morning. Active Bariatric Multivitamins/Iro n Oral Capsule Take by mouth. Active B1 100 MG Oral Tablet Take by mouth. Activ e OneTouch Ultra 2 w/Device KitIndications:Hi story of gastric bypass Use to check sugars 4 times daily (fasting in the AM and 3 other times throughout the day, one hour following breakfast, lunch, and dinner). 1 Kit 04/02/2024 10:23 AM EST 4 Active Calcium 250 MG Oral Capsule Take by mouth. Unsure of dosage Active Ventolin HFA 108 (90 Base) MCG/ACT Inhalation Aerosol SolutionIndicatio ns:Acute bronchospasm Inhale 2 Puffs by mouth every 4 hours as needed for Wheezing, Shortness of Breath or Cough. 18 g 4 Active Breast PumpIndications:B reast feeding status of mother Use as directed. 1 Each 4 Active valACYclovir HCl 500 MG Oral Tablet (Valtrex)Indicati ons:HSV (herpes simplex virus) infection Take 1 Tablet by mouth in the morning and 1 Tablet before bedtime, until gone. 60 Tablet 1 06/22/2024 10:47 AM EST 5 Active Hospital, Clinic, or Other Facility Administered Medication Ordered Dose Route Frequency Start Date End Date Status vitamin b-12 (Cyanocobalamin) inj 1,000 mcgIndications:Intestinal postoperative nonabsorption 1000 mcg IM [id number] 12/30/2023 Active documented as of this encounter (statuses as of 07/10/2024) Active Problems Problem Noted Date Diagnosed Date Antepartum anemia complicating 024 Overview (12/17/2023): Hgb 11.7 with NOB. Following with GI nutrition secondary to gastric bypass. Consider Hgb in second trimester Normal in first trimester 12/15/2023 History of gastric bypass 12/15/2023 Overview (12/15/2023): 2020, follows with GI/nutrition Reviewed GDM screening -- 1 hour gtt vs finger sticks -- pt will need 26-28 wks -- she will consider options Unspecified ovarian cyst, left side 12/15/2023 Overview (12/15/2023): Cyst vs fluid on dating ultrasound. History of left ectopic . Viable IUP on dating. Fluid decreased in size on follow up ultrasound. Ask-a-doc to [facility] sent, recommended reassess 5-6 weeks or with anatomy with pain precautions in meantime. Pt asymptotic currently. She opted for follow with anatomy ultrasound, if pain occurs will notify office. CARLA (obstructive sleep apnea) 08/10/2020 Anxiety 01/01/2012 Other acne 12/20/2004 Herpes simplex virus infection 09/04/2004 Chronic rhinitis 04/25/2004 Motion sickness 09/15/2002 Vertigo Estimated Date of Delivery Comme nts Yes 07/21/2024 Based on last me nstrual period of 10/15/2023 (Exact Date) documented as of this encounter (statuses as of 07/10/2024) Resolved Problems Problem Noted Date Diagnosed Date Resolved Date SBO (small bowel obstruction) 08/15/2020 09/11/2020 Body mass index (BMI) of 40. 0 to 44.9 in adult 02/17/2017 11/29/2021 Overview: Per Obesity protocol #1 Asthma with severity to be determined 11/09/2009 01/09/2015 Overview (08/28/2015): Per Asthma Taxonomy ICD-10 update of inactive term FX MEDIAL MALLEOLUS-CLOS 10/31/2005 Status asthmaticus 07/18/2004 0 FX DISTAL RADIUS NEC-CL 01/26/200412/18 documented as of this encounter (statuses as of 07/10/2024) Immunizations Name Administration Dates Next Due COVID-19 mRNA, LNP-s, No Pre serve, 2-Dose Series (PayPay) 05/30/2020,05/09/2020 Meningococcal Conjugate Vaccine (Menactra/Menveo ) 11/15/2010,04/25/2008 Seasonal Influenza Vac., MDV, IM, 0.5 mL (Fluzon e) 02/01/2016 Seasonal Influenza, PF, 6 M & above, IM , (FluLaval or Fluzone) 03/12/2023,03/13/2022 Seasonal Influenza, Quadrivalent, No Preserve, I M 03/07/2021 Seasonal Influenza, Trivalent, (IIV3), PF, (Fluz one) 02/25/2024 TDAP, Age 7 and older, IM (Adacel) 04/30/2024, Varicella Vaccine (Chicken Pox) 05/16/2010 documented as of this encounter Social History Tobacco Use Types Packs/Day Years Used Date Smoking Tobacco: Never Smokeless Tobacco: Never Alcohol Use Standard Drinks/Week Comments Not Currently 0 (1 standard drink = 0.6 oz pur e alcohol) rarely PHQ-2 Answer Date Recorded PHQ-2 Score 0 03/17/2020 Hunger Vital Sign Answer Date Recorded Within the past 12 months, y ou worried that your food would run out before you got the money to buy more. Never true 11/22/19 24 Within the past 12 months, t he food you bought just didn't last and you didn't have money to get more. Never true 11/22/2023 [place] Depression Scale Answer Date Recorded [place] Depression Scale Total 4 12/15/2023 The thought of harming myself has occurred to me . Never 12/15/2023 Childcare Answer Date Recorded Do you feel overwhelmed with taking care of a child, family member or friend? No 11/22/2023 Does your family need help f inding childcare? (Household - for ages 0-17 years) Not on file 11/22/2023 Clothing Answer Date Recorded Have you been unable to get clothing when it was really needed? No 11/22/2023 Is your family able to get c lothes or diapers when needed? (Household - for ages 0-17 years) Not on file 11/22/2023 Personal Safety Answer Date Recorded Do you feel unsafe or have concerns for your saf ety? No 11/22/2023 Do you have concerns for you r family's safety? (Household - for ages 0-17 years) Not on file 11/22/2023 Utilities Answer Date Recorded Do you have trouble paying y our heating, water, or electric bill? No 11/22/2023 Is your family able to pay t he heat, water, or electric bill? (Household - for ages 0-17 years) Not on file 11/22/2023 Does your family have access to good internet? (Household - for ages 0-17 years) Not on file 11/22/2023 Employment Status Answer Date Recorded Are you unemployed or without regular income? No 11/22/2023 Does the household have a re gular source of income? (Household - for ages 0-17 years) Not on file 11/22/2023 Social Connections Answer Date Recorded How often do you feel lonely or isolated from th ose around you? Never 11/22/2023 Financial Resource Strain Answer Date R ecorded Do you have any trouble payi ng for your medications, or do you think you might in the future? No 11/22/2023 Does your family have troubl e paying for medicine? (Household - for ages 0-17 years) Not on file 11/22/2023 Transportation Needs Answer Date Record ed Do you have trouble getting a ride to medical visits or work? (Adult - for ages 18 years and over) Not on file 11/22/2023 Does your family have a hard time getting a ride to doctors visits? (Household - for ages 0-17 years) Not on file 11/22/2023 Has lack of transportation k ept you from medical appointments, meetings, work, or from getting things needed for daily living? Check all that apply. No 11/22/2023 Do you (or your family) have trouble finding or paying for a ride (transportation)? (Household - for ages 0-17 years) Not on file 11/22/2023 Housing Stability Answer Date Recorded Do you currently live in a s helter or have no steady place to sleep at night? No 11/22/2023 Do you think you are at risk of becoming homeless? (Adult - for ages 18 years and over) Not on file 11/22/2023 Does your family worry about paying for your home or becoming homeless? (Household - for ages 0-17 years) Not on file 0 11/22/2023 Are you homeless or worried that you might be in the future? No 11/22/2023 Are you (or your family) tammy eless or worried that you might be in the future? (Household - for ages 0-17 years) Not on file Food Insecurity Answer Date Recorded Do you need food for this week? No 11/22/2023 Are you able to get enough f ood for your family? (Household - for ages 0-17 years) Not on file 11/22/2023 Does your family need food t his week? (Household - for ages 0-17 years) Not on file 11/22/2023 Do you always have enough fo od for your family? (Household - for ages 0-17 years) Not on file 11/22/2023 Food Insecurity Answer Date Recorded Within the past 12 months, y ou worried that your food would run out before you got the money to buy more. Never true 11/22/19 24 Within the past 12 months, t he food you bought just didn't last and you didn't have money to get more. Never true 11/22/2023 Do you need food for this week? No 11/22/2023 Estimated Date of Delivery Comme nts Yes 07/21/2024 Based on last me nstrual period of 10/15/2023 (Exact Date) Sex and Gender Information Value Date Recorded Sex Assigned at Female 11/22/2023 8:52 AM EDT Legal Sex Female 6:04 AM EST Gender Identity Female 11/22/2023 8:52 AM EDT Sexual Orientation Straight 11/22/2023 8: 52 AM EDT documented as of this encounter Last Filed Vital Signs Vital Sign Reading Time Taken Comments Blood Pressure 110/64 07/09/2024 4:56 PM EST Pulse - - Temperature - - Respiratory Rate - - Oxygen Saturation - - Inhaled Oxygen Concentration - - Weight 92.5 kg (204 lb) 07/09/2024 4:56 PM EST Height 162.6 cm (5' 4") 07/09/2024 4:56 PM EST Body Mass Index 35.02 07/09/2024 4:56 PM EST documented in this encounter Functional Status * Are you deaf or do you have serious difficulty hearing? Answer Date of Assessment Author No 08/14/2020 2:05 PM EDT Anita Vaughan LPN * Are you blind or do you have serious difficulty seeing, even when wearing glasses? Answer Date of Assessment Author No 08/14/2020 2:05 PM EDT Anita Vaughan LPN * Do you have serious difficulty walking or climbing stairs? (5 years old or older) Answer Date of Assessment Author No 08/14/2020 2:05 PM EDT Anita Vaughan LPN * Do you have difficulty dressing or bathing? (5 years old or older) Answer Date of Assessment Author No 08/14/2020 2:05 PM EDT Anita Vaughan LPN * Because of a physical, mental, or emotional condition, do you have difficulty doing errands alone such as visiting a doctors office or shopping? (15 years old or older) Answer Date of Assessment Author No 08/14/2020 2:05 PM EDT Anita Vaughan LPN documented as of this encounter Mental Status * Because of a physical, mental, or emotional condition, do you have serious difficulty concentrating, remembering, or making decisions? (5 years old or older) Answer Entry Date Author No 08/14/2020 2:05 PM DENNIST Anita Vaughan LPN documented in this encounter Progress Notes * Cielo Yeager PA-C - 07/09/2024 5:20 PM EST 38w2d Would like to discuss IOL. Prefers 40+ weeks and if able would like to schedule earlier in 40th week of . Requesting cervical check. Citizenship Instructor Documentation Provider requested traffic warehouse supervisor. Name of traffic warehouse supervisor: Zuly Chen RN Cervix thick, posterior Denies VB, LOF, regular contractions Baby is active. RTC in 1 week Cielo Yeager PA-C * Zuly Chen RN - 07/09/2024 4:57 PM EST Patient here for GISSELLE 38w2d + FM Denies bleeding/leaking/regular contractions Zuly Chen RN documented in this encounter Plan of Treatment Upcoming Encounters Date Type Department Care Team (Late st Contact Info) Description 07/13/2024 4:00 PM EST Office Visit Gynecology/Obstetrics [facility] [address] [place] [address] Rosenda Wren CNM [address] [place] [phone] Health Maintenance Due Date Last Done Comments Depression Screening 03/17/2021 03/17/2020 COVID-19 Vaccine ( season) 2024 05/30/2020, 05/09/2020 Pap Smear 12/14/2026 12/15/2023, 07/17, 01/07/2014, Additional history exists Cervical Cancer Screening 12/14/2028 HPV/Co-Test 12/14/2028 12/15/2023 DTap/Tdap Vaccines (8 - Td or Tdap) 04/30/2034 04/30/2024, 05/17/2011, 12/21/2003, Additional history exists Hepatitis B Vaccine Completed 04/17/1993, 1992, 1992 MENINGOCOCCAL (MENACTRA/MENVEO) Completed 11/15/2010, 04/25/2008 Influenza Vaccine (FLU shot) Completed 01/2024, 03/12/2023, 03/13/2022, Additional history exists HPV (Gardasil) Vaccine Aged Out No lo nger eligible based on patient's age to complete this topic Meningitis B Vaccine (Bexsero/Trumemba) Aged Out No longer eligible based on patient's age to complete this topic Pneumococcal Vaccine: Pediatrics (0 to 5 Years) and At-Risk Patients (6 to 18 Years and 19+ Years) Aged Out No longer eligib le based on patient's age to complete this topic documented as of this encounter Goals Goal Patient Goal Type Associated Problems Recent Progress Patient-Stated? Author Reminders Care Plan OB Reminders No Nell Provider documented as of this encounter Medical Devices Not on filedocumented as of this encounter Visit Diagnoses Diagnosis Normal in first trimester- Primary History of gastric bypass Bariatric surgery status Unspecified ovarian cyst, left side Antepartum anemia complicating Anemia, antepartum documented in this encounter Additional Health Concerns Active Problems Noted Date Diagnosed Date OB Reminders 12/15/2023 documented as of this encounter Advance Directives * Full Code (Latest Code Status on File) Date Activated Date Inactivated Comments 08/14/2020 3:10 PM 08/15/2020 4:54 PM Question Answer Comments Discussion of Advance Directives occurred with: Not Discussed Does the patient have a Living Will? No Does the patient have Health Care Power of Attor robi? No * Full Code Date Activated Date Inactivated Comments 08/10/2020 7:14 PM 08/11/2020 7:30 PM This order r eflects the patients wishes and were consensually agreed upon. * Full Code Date Activated Date Inactivated Comments 08/10/2020 1:36 PM 08/10/2020 7:13 PM This order r eflects the patients wishes and were consensually agreed upon.
--- OUTSIDE RECORDS SUMMARY | 2024-07-22 11:22 | External Medical Summary | Summary of Care ---
Author Name Unknown Organization [facility] Address [address] [facility] [place] [place] [address] Phone [phone] Care Team Providers Care Wastewater Treatment Plant Operator Name Role Phone Unavailable Primary Care Provider Unavailabl e Reason for Visit * Reason Comments Return Visit Encounter Details Date Type Department Care Team (Late st Contact Info) Description 07/13/2024 4:00 PM EST Office Visit Gynecology/Obstetric s [facility] [address] [place] [address] Rosenda Wren CNM [address] [place] [address] Normal in first trimester*; History of gastric bypass; Unspecified ovarian cyst, left side; Antepartum anemia complicating Allergies Active Allergy Reactions Criticality Noted Date Comments Morphine And Codeine Nausea/vomiting Medium 08/10/2020 Nausea /dizziness Ondansetron 09/12/2021 Vomiting and nausea documented as of this encounter (statuses as of 07/14/2024) Medications meclizine (ANTIVERT) 25 MG TabletIndication s:Vertigo 1 by mouth in am as needed for motion sickness 90 Tab 8 Active Additional Information Patient not taking.Reported on 07/13/2024 Vitron-C 65-125 MG Oral Tablet (Iron-Vitamin C 65-125 mg per tab) Take 1 Tablet by mouth in the morning. Active Bariatric Multivitamins/Ir on Oral Capsule Take by mouth. Active B1 100 MG Oral Tablet Take by mouth. Activ e OneTouch Ultra 2 w/Device KitIndications:H istory of gastric bypass Use to check sugars 4 times daily (fasting in the AM and 3 other times throughout the day, one hour following breakfast, lunch, and dinner). 1 Kit 04/02/2024 10:23 AM EST 4 Active Calcium 250 MG Oral Capsule Take by mouth. Unsure of dosage Active Ventolin HFA 108 (90 Base) MCG/ACT Inhalation Aerosol SolutionIndicati ons:Acute bronchospasm Inhale 2 Puffs by mouth every 4 hours as needed for Wheezing, Shortness of Breath or Cough. 18 g 4 Active Additional Information Patient not taking.Reported on 07/13/2024 Breast PumpIndications: Breast feeding status of mother Use as directed. 1 Each 4 Active valACYclovir HCl 500 MG Oral Tablet (Valtrex)Indicat ions:HSV (herpes simplex virus) infection Take 1 Tablet by mouth in the morning and 1 Tablet before bedtime, until gone. 60 Tablet 1 06/22/2024 10:47 AM EST 5 Active Hospital, Clinic, or Other Facility Administered Medication Ordered Dose Route Frequency Start Date End Date Status vitamin b-12 (Cyanocobalamin) inj 1,000 mcgIndications:Intestinal postoperative nonabsorption 1000 mcg IM [id number] 12/30/2023 Active documented as of this encounter (statuses as of 07/14/2024) Active Problems Problem Noted Date Diagnosed Date [...] size on follow up ultrasound. Ask-a-doc to [facility] sent, recommended reassess 5-6 weeks [...] as of this encounter (statuses as of 07/14/2024) Resolved Problems Problem Noted Date Diagnosed Date [...] as of this encounter (statuses as of 07/14/2024) Immunizations Name Administration Dates Next Due COVID-19 mRNA, LNP-s, No Pre serve, 2-Dose Series (iCouch) 05/30/2020,05/09/2020 Meningococcal Conjugate Vaccine (Menactra/Menveo ) 11/15/2010,04/25/2008 [...] money to get more. Never true 11/22/2023 [place] Depression Scale Answer Date Recorded [place] Depression Scale Total 5 07/13/2024 The thought of harming myself has occurred to me . Never 07/13/2024 Childcare Answer Date Recorded Do you feel [...] Sign Reading Time Taken Comments Blood Pressure 108/64 07/13/2024 3:55 PM EST Pulse - - Temperature - - Respiratory Rate - - Oxygen Saturation - - Inhaled Oxygen Concentration - - Weight 90.7 kg (200 lb) 07/13/2024 3:55 PM EST Height - - Body Mass Index 34.33 07/09/2024 4:56 PM EST documented in this encounter Functional Status * Are you deaf or do you have serious difficulty hearing? Answer Date of Assessment Author No 08/14/2020 2:05 PM DENNIST Anita Vaughan LPN * Are you blind or do you have serious difficulty seeing, even when wearing glasses? Answer Date of Assessment Author No 08/14/2020 2:05 PM DENNIST Anita Vaughan LPN * Do you have serious difficulty walking or climbing stairs? (5 years old or older) Answer Date of Assessment Author No 08/14/2020 2:05 PM DENNIST Anita Vaughan LPN * Do you have [...] Entry Date Author No 08/14/2020 2:05 PM EDT Anita Vaughan LPN documented in this encounter Progress Notes * Rosenda Wren CNM - 07/13/2024 4:00 PM EST Amalia Cifuentes is a 34 year old female here for her routine OB appointment at 38w6d Her Estimated Date of Delivery: 07/21/24 REVIEW OF SYSTEMS: She affirms movement. Denies vaginal bleeding, LOF, contractions, N/V, headaches PHYSICAL EXAM: Filed Vitals: 07/13/24 1555 BP: 108/64 Weight: 90.7 kg (200 lb) +FHT 130s Fundal height 38 ASSESSMENT/PLAN: No diagnosis found. Supervision of -IOL scheduled for 07/22/24, instructions given - labor precautions and kick counts reviewed - RTO in 1 week Rosenda Wren CNM * Elvia Chambers LPN - 07/13/2024 3:52 PM EST 38w6d Denies vaginal bleeding/rom + movement No new concerns documented in this encounter Plan of Treatment Health Maintenance Due Date Last Done Comments [...] Author Reminders Care Plan OB Reminders No Rosahart, Provider documented as of this encounter Medical [...]
--- OUTSIDE RECORDS SUMMARY | 2024-07-22 11:22 | External Medical Summary | Summary of Care ---
Author Name Unknown Organization [facility] Address [address] [facility] [place] [address] Phone [phone] Care Team Providers Care Dispatcher Electric Power Name Role Phone Unavailable Primary Care Provider Unavailabl e Encounter Details Date Type Department Care Team (Late st Contact Info) Description 07/09/2024 [facility] [address] [place] [address] Cielo Yeager PA-C [address] [place] [address] Allergies Active Allergy Reactions Criticality Noted Date [...] 1,000 mcgIndications:Intestinal postoperative nonabsorption 1000 mcg IM [id number] 12/30/2023 Active documented as of this encounter [...] size on follow up ultrasound. Ask-a-doc to [facility] sent, recommended reassess 5-6 weeks or [...] mRNA, LNP-s, No Pre serve, 2-Dose Series (Brighter Future Challenge) 05/30/2020,05/09/2020 Meningococcal Conjugate Vaccine (Menactra/Menveo ) 11/15/2010,04/25/2008 [...] money to get more. Never true 11/22/2023 [place] Depression Scale Answer Date Recorded [place] Depression Scale Total 4 12/15/2023 The thought [...] AM EDT documented as of this encounter Functional Status * Are you [...] of Assessment Author No 08/14/2020 2:05 PM Anita Gardner LPN documented as of this encounter Mental Status * Because of a physical, mental, or emotional condition, do you have serious difficulty concentrating, remembering, or making decisions? (5 years old or older) Answer Entry Date Author No 08/14/2020 2:05 PM EDT Anita Vaughan LPN documented in this encounter Miscellaneous Notes * Telephone Encounter - Zuly Chen RN - 07/09/2024 5:36 PM EST Scheduled patient for IOL 07/22 at [facility] for post dates, please make provider aware. documented in this encounter Plan of Treatment Upcoming Encounters Date Type Department Care Team (Late st Contact Info) Description 07/13/2024 4:00 PM EST Office Visit [facility]necology[facility]st[facility] [address] [place] [address] Rosenda Wren CNM [address] [place] [address] Health Maintenance Due Date Last Done Comments [...] Author Reminders Care Plan OB Reminders No Nell, Provider documented as of this encounter Medical Devices Not on filedocumented as of this encounter Additional Health Concerns Active Problems [...]
--- OUTSIDE RECORDS SUMMARY | 2024-07-22 11:22 | External Medical Summary | Summary of Care ---
Author Name Unknown Organization [facility] Address [address] [facility] [place] [address] Phone [phone] Care Team Providers Care Thresher Broomcorn Name Role Phone Unavailable Primary Care Provider Unavailabl e Encounter Details Date Type Department Care Team (Late st Contact Info) Description 06/18/2024 Telephone [facility] [address] [place] [address] Cielo Yeager PA-C [address] [place] [address] Allergies Active Allergy Reactions Criticality Noted Date Comments Morphine And Codeine Nausea/vomiting Medium 08/10/2020 Nausea /dizziness Ondansetron 09/12/2021 Vomiting and nausea documented as of this encounter (statuses as of 07/12/2024) Medications meclizine (ANTIVERT) 25 MG TabletIndications :Vertigo [...] Use as directed. 1 Each 4 Active Hospital, Clinic, or Other Facility Administered Medication Ordered Dose Route Frequency Start Date End Date Status vitamin b-12 (Cyanocobalamin) inj 1,000 mcgIndications:Intestinal postoperative nonabsorption 1000 mcg IM [id number] 12/30/2023 Active documented as of this encounter (statuses as of 07/12/2024) Active Problems Problem Noted Date Diagnosed Date [...] size on follow up ultrasound. Ask-a-doc to [facility] sent, recommended reassess 5-6 weeks or [...] as of this encounter (statuses as of 07/12/2024) Resolved Problems Problem Noted Date Diagnosed Date [...] as of this encounter (statuses as of 07/12/2024) Immunizations Name Administration Dates Next Due COVID-19 mRNA, LNP-s, No Pre serve, 2-Dose Series (SocialMadeSimple) 05/30/2020,05/09/2020 Meningococcal Conjugate Vaccine (Menactra/Menveo ) 11/15/2010,04/25/2008 [...] money to get more. Never true 11/22/2023 [place] Depression Scale Answer Date Recorded [place] Depression Scale Total 4 12/15/2023 The thought [...] 2:05 PM DENNIST Anita Vaughan LPN * Because of a [...] Entry Date Author No 08/14/2020 2:05 PM Anita Gardner LPN documented in this encounter Miscellaneous Notes * Telephone Encounter - Cielo Yeager PA-C - 06/18/2024 4:42 PM EST Please call patient and schedule back for 1 week [place]IS[facility]. Last appt 06/18/2024. She did mention prefers later appointments if able. Thank you! documented in this encounter Plan of Treatment Upcoming Encounters Date Type Department Care Team (Late st Contact Info) Description 07/13/2024 4:00 PM EST Office Visit Gynecology/Obstetrics [facility] [address] [place] [address] Rosenda Wren CNM [address] [place] [address] Health Maintenance Due Date Last Done Comments [...]
--- OUTSIDE RECORDS SUMMARY | 2024-07-22 11:22 | External Medical Summary | Summary of Care ---
Author Name Unknown Organization [facility] Address [address] [facility] [place] [address] Phone [phone] Care Team Providers Care Degreasing Solution Mixer Name Role Phone Unavailable Primary Care Provider Unavailabl e Reason for Visit * Reason Comments Return Visit Encounter Details Date Type Department Care Team (Late st Contact Info) Description 07/09/2024 5:00 PM EST Office Visit Gynecology/Obstetric s [facility] [address] [place] [address] Cielo Yeager PA-C [address] [place] [address] Normal in first trimester*; History of gastric [...] 1,000 mcgIndications:Intestinal postoperative nonabsorption 1000 mcg IM [id number] 12/30/2023 Active documented as of this encounter [...] size on follow up ultrasound. Ask-a-doc to [facility] sent, recommended reassess 5-6 weeks or [...] mRNA, LNP-s, No Pre serve, 2-Dose Series (Aspen Evian) 05/30/2020,05/09/2020 Meningococcal Conjugate Vaccine (Menactra/Menveo ) 11/15/2010,04/25/2008 [...] money to get more. Never true 11/22/2023 [place] Depression Scale Answer Date Recorded [place] Depression Scale Total 4 12/15/2023 The thought [...] 40th week of . Requesting cervical check. Traffic Director Documentation Provider requested presetter operator. Name of presetter operator: Zuly Chen RN Cervix thick, posterior Denies [...] 07/13/2024 4:00 PM EST Office Visit Gynecology/Obstetrics [facility] [address] [place] [address] Rosenda Wren CNM [address] [place] [address] Health Maintenance Due Date Last Done Comments [...]
--- OUTSIDE RECORDS SUMMARY | 2024-07-22 11:23 | External Medical Summary | Summary of Care ---
Author Name Unknown Organization [facility] Address [address] [place] [facility] [place] [address] Phone [phone] Care Team Providers Care Director Of Assisted Living Name Role Phone Unavailable Primary Care Provider Unavailabl e Reason for Visit * Reason Comments Return Visit Encounter Details Date Type Department Care Team (Late st Contact Info) Description 05/20/2024 3:45 PM EST Office Visit Gynecology/Obstetric s [facility] [address] [place] [address] Jeffy Ruiz MD [address] [place] [address] Normal in first trimester*; History of gastric bypass; Unspecified ovarian cyst, left side; Antepartum anemia complicating Allergies Active Allergy Reactions Criticality Noted Date Comments Morphine And Codeine Nausea/vomiting Medium 08/10/2020 Nausea /dizziness Ondansetron 09/12/2021 Vomiting and nausea documented as of this encounter (statuses as of 05/20/2024) Medications meclizine (ANTIVERT) 25 MG TabletIndication s:Vertigo [...] or Cough. 18 g 4 Active Breast PumpIndications: Breast feeding status of mother Use as directed. 1 Each 4 Active LancetsIndicatio ns:History of gastric bypass Use to test 4 times daily. 100 Each 5 04/02/2024 10:23 AM EST 4 025 Discontin ued(Medic ation List Clean Up) Glucose Blood In Vitro StripIndications :History of gastric bypass 4 times daily, fasting after breakfast, lunch and dinner. 100 Strip 5 04/02/2024 10:23 AM EST 4 025 Discontin ued(Medic ation List Clean Up) Hospital, Clinic, or Other Facility Administered Medication Ordered Dose Route Frequency Start Date End Date Status vitamin b-12 (Cyanocobalamin) inj 1,000 mcgIndications:Intestinal postoperative nonabsorption 1000 mcg IM [id number] 12/30/2023 Active documented as of this encounter (statuses as of 05/20/2024) Active Problems Problem Noted Date Diagnosed Date [...] size on follow up ultrasound. Ask-a-doc to [facility] sent, recommended reassess 5-6 weeks or with [...] as of this encounter (statuses as of 05/20/2024) Resolved Problems Problem Noted Date Diagnosed Date [...] as of this encounter (statuses as of 05/20/2024) Immunizations Name Administration Dates Next Due COVID-19 mRNA, LNP-s, No Pre serve, 2-Dose Series (TUTORize) 05/30/2020,05/09/2020 Meningococcal Conjugate Vaccine (Menactra/Menveo ) 11/15/2010,04/25/2008 [...] money to get more. Never true 11/22/2023 [place] Depression Scale Answer Date Recorded [place] Depression Scale Total 4 12/15/2023 The thought [...] ages 0-17 years) Not on file 11/22/2023 Estimated Date of Delivery Comme nts [...] Sign Reading Time Taken Comments Blood Pressure 100/60 05/20/2024 3:42 PM EST Pulse - - Temperature - - Respiratory Rate - - Oxygen Saturation - - Inhaled Oxygen Concentration - - Weight 87.5 kg (193 lb) 05/20/2024 3:42 PM EST Height 164.5 cm (5' 4.76") 05/20/2024 3:42 PM ES T Body Mass Index 32.36 05/20/2024 3:42 PM EST documented in this encounter Functional [...] No 08/14/2020 2:05 PM Anita Gardner LPN * Do you have difficulty dressing or bathing? (5 years old or older) Answer Date of Assessment Author No 08/14/2020 2:05 PM Anita Gardner LPN * Because of a physical, mental, or emotional condition, do you have difficulty doing errands alone such as visiting a doctors office or shopping? (15 years old or older) Answer Date of Assessment Author No 08/14/2020 2:05 PM EDAnita Blackwell LPN documented as of this encounter Mental Status * Because of a physical, mental, or emotional condition, do you have serious difficulty concentrating, remembering, or making decisions? (5 years old or older) Answer Entry Date Author No 08/14/2020 2:05 PM EDT Anita Vaughan LPN documented in this encounter Progress Notes * Jeffy Ruiz MD - 05/20/2024 3:58 PM EST Pt doing well No complaints Hx of gastric bypass GI Nutrition on consult RTc 2 weeks * Karie Piedra LPN - 05/20/2024 3:42 PM EST 31w1d documented in this encounter Plan of Treatment Upcoming Encounters Date Type Department Care Team (Late st Contact Info) Description 05/31/2024 3:45 PM EST Nurse Only Nutrition & [facility] Management, [facility] [address] [facility] [address] Jomar Nurse Gi Nutrition [facility] [address] 06/09/2024 3:00 PM EST Office Visit Gynecology/Obstetric s [facility] [address] [facility] [place] [address] Dena Bustos CRNP 132 [facility] [place] [address] 07/05/2024 1:10 PM EST Nutrition Services Nutrition & Weight Management, [facility] [address] [place] [address] Lyly Strange, ANJUM [address] [place] [address] 07/05/2024 2:00 PM EST Office Visit Nutrition & Weight Management, [facility] [address] [place] [address] Marisol Molina PA-C [address] [place] [address] Health Maintenance Due Date Last Done Comments [...] Author Reminders Care Plan OB Reminders No Mychart, Provider documented as of this encounter Medical [...]
--- OUTSIDE RECORDS SUMMARY | 2024-07-22 11:23 | External Medical Summary | Summary of Care ---
Author Name Unknown Organization [facility] Address [address] [facility] [place] [address] Phone [phone] Care Team Providers Care Supervisor Major Appliance Assembly Name Role Phone Unavailable Primary Care Provider Unavailabl e Encounter Details Date Type Department Care Team (Late st Contact Info) Description 06/24/2024 Telephone Gynecology/Obstetrics [facility] [address] [place] [address] Loyd Gordon MD [address] [facility] [place] [phone] Allergies Active Allergy Reactions Criticality Noted Date Comments Morphine And Codeine Nausea/vomiting Medium 08/10/2020 Nausea /dizziness Ondansetron 09/12/2021 Vomiting and nausea documented as of this encounter (statuses as of 06/25/2024) Medications meclizine (ANTIVERT) 25 MG TabletIndications :Vertigo [...] 1,000 mcgIndications:Intestinal postoperative nonabsorption 1000 mcg IM [id number] 12/30/2023 Active documented as of this encounter (statuses as of 06/25/2024) Active Problems Problem Noted Date Diagnosed Date [...] size on follow up ultrasound. Ask-a-doc to [facility] sent, recommended reassess 5-6 weeks or [...] as of this encounter (statuses as of 06/25/2024) Resolved Problems Problem Noted Date Diagnosed Date [...] as of this encounter (statuses as of 06/25/2024) Immunizations Name Administration Dates Next Due COVID-19 mRNA, LNP-s, No Pre serve, 2-Dose Series ([email or web address]) 05/30/2020,05/09/2020 Meningococcal Conjugate Vaccine (Menactra/Menveo ) 11/15/2010,04/25/2008 [...] money to get more. Never true 11/22/2023 [place] Depression Scale Answer Date Recorded [place] Depression Scale Total 4 12/15/2023 The thought [...] encounter Miscellaneous Notes * Telephone Encounter - Alyssa Valdez OSA - 06/25/2024 8:18 AM EST Got patient rescheduled. documented in this encounter Plan of Treatment Upcoming Encounters Date Type Department Care Team (Late st Contact Info) Description 06/30/2024 1:15 PM EST Office Visit Gynecology/Obstetrics [facility] [address] [place] [address] Oneyda De Luna, DNP, CNM [address] [place] [address] 07/05/2024 1:10 PM EST Nutrition Services Nutrition & Weight Management, [facility] [address] [place] [address] Lyly Strange RDN [address] [place] [address] 07/05/2024 2:00 PM EST Office Visit Nutrition & Weight Management, [facility] [address] [place] [address] Mariosl Molina PA-C [address] [place] [address] Health Maintenance Due Date Last Done Comments [...] Author Reminders Care Plan OB Reminders No [place], Provider documented as of this encounter Medical [...]
--- OUTSIDE RECORDS SUMMARY | 2024-07-22 11:23 | External Medical Summary | Summary of Care ---
Author Name Unknown Organization [facility] Address [address] [facility] [address] Phone [phone] Care Team Providers Care Account General Manager Name Role Phone Unavailable Primary Care Provider Unavailabl e Reason for Visit * Reason Comments Return Visit Encounter Details Date Type Department Care Team (Late st Contact Info) Description 06/30/2024 2:00 PM EST Office Visit Gynecology/Obstetric s [facility] [address] [place] [address] Dena Bustos CRNP [address] [facility] [place] [address] Normal in third trimester*; History of gastric bypass; Unspecified ovarian cyst, left side; Antepartum anemia complicating Allergies Active Allergy Reactions Criticality Noted Date Comments Morphine And Codeine Nausea/vomiting Medium 08/10/2020 Nausea /dizziness Ondansetron 09/12/2021 Vomiting and nausea documented as of this encounter (statuses as of 06/30/2024) Medications meclizine (ANTIVERT) 25 MG TabletIndications :Vertigo [...] 1,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 Ask-a-doc to [facility] sent, recommended reassess 5-6 weeks or [...] as of this encounter (statuses as of 06/30/2024) Resolved Problems Problem Noted Date Diagnosed Date [...] as of this encounter (statuses as of 06/30/2024) Immunizations Name Administration Dates Next Due COVID-19 mRNA, LNP-s, No Pre serve, 2-Dose Series (BTCJam) 05/30/2020,05/09/2020 DTP Vaccine 11/21/1997, 4,01/05/1993,10/31,1992 HIB PRP-T, 4 Dose, PF, IM (H iberix, ActHib) 10/11/1993,01/05/1993,1992,08/29 Hepatitis B, 0-19 yrs 04/17/1993,1992,06/19 MMR - Measles/Mumps/Rubella Vaccine 11/21/1997,0 07/16/1993 Meningococcal Conjugate Vacc ine (Menactra/Menveo) 11/15/2010,04/25/2008 OPV - Polio Virus Vaccine (Oral) 998,04/17/1993,1992,08/29 Seasonal Influenza Vac., MDV , IM, 0.5 mL (Fluzone) 02/01/2016 Seasonal Influenza, PF, 6 M & above, IM , (FluLaval or Fluzone) 03/12/2023,03/13/2022 Seasonal Influenza, Quadriva lent, No Preserve, IM 03/07/2021 Seasonal Influenza, Trivalen t, (IIV3), PF, (Fluzone) 02/25/2024 TB Marcy Test 07/16/1993 TD - Tetanus/Diptheria (ADULT) 12/21/2003 TDAP, Age 7 and older, IM (Adacel) 04/30/2024, Varicella Vaccine (Chicken Pox) 05/16/2010,02/13 documented as of this encounter Social History [...] money to get more. Never true 11/22/2023 [place] Depression Scale Answer Date Recorded [place] Depression Scale Total 4 12/15/2023 The thought [...] Sign Reading Time Taken Comments Blood Pressure 100/58 06/30/2024 1:54 PM EST Pulse - - Temperature - - Respiratory Rate - - Oxygen Saturation - - Inhaled Oxygen Concentration - - Weight 88.5 kg (195 lb) 06/30/2024 1:54 PM EST Height - - Body Mass Index 33.47 06/18/2024 4:28 PM EST documented in this encounter Functional Status * Are you deaf or do you have serious difficulty hearing? Answer Date of Assessment Author No 08/14/2020 2:05 PM Anita Gardner LPN * Are you blind or do you have serious difficulty seeing, even when wearing glasses? Answer Date of Assessment Author No 08/14/2020 2:05 PM Anita Gardner LPN * Do you have serious difficulty [...] Anita Gardner LPN documented in this encounter Progress Notes * Dena Bustos CRNP - 06/30/2024 2:17 PM EST 37w Having some musculoskeletal pains, all sound normal at this stage of . Has questions about distance to work- drives an hour to get to [facility] for work every day. She can workfrom home on bad weather days typically, and is scheduled to [facility] the week of her due date. Advised this is ok, and to seek care at [facility] if at work and she feels she is in labor. Baby is active. She denies contractions or bleeding. GBS today. Requesting cervical check. Integration Software Developer Documentation Provider requested train inspector. Name of train inspector: Hawa * Hawa Henriquez CMA - 06/30/2024 1:54 PM EST 37w0d Sharp pain on left side when baby is pushing on stomach. Right sided neck. Pelvic pain when walking. Slight headaches. Having dizzy spells this week, doesn't last long. GBS today Requesting cervical check documented in this encounter Plan of Treatment Upcoming Encounters Date Type Department Care Team (Late st Contact Info) Description 07/05/2024 1:10 PM EST Nutrition Services Nutrition & Weight Management, [facility] [address] [place] [address] Lyly Strange RDN [address] [place] [address] 07/05/2024 2:00 PM EST Office Visit Nutrition & Weight Management, [facility] [address] [place] [address] Marisol Molina PA-C [address] [place] [address] 07/06/2024 9:45 AM EST Office Visit Gynecology/Obstetrics [facility] [address] [place] [address] Dena Bustos CRNP [address] [place] [address] 07/13/2024 4:00 PM EST Office Visit Gynecology/Obstetrics [facility] [address] [place] [address] Rosenda Wren CNM [address] [place] [address] Pending Results Name Type Priority Associated Diagnoses Date /Time GROUP B STREP CULTURE/PCR Lab Routine Normal in third trimester 06/30/2024 2:22 PM EST Scheduled Orders Name Type Priority Associated Diagnoses Orde r Schedule GROUP B STREP CULTURE/PCR Lab Routine Normal in third trimester Expected: 06/30/2024, Expires: 06/30/2025 Health Maintenance Due Date Last Done Comments [...] this encounter Visit Diagnoses Diagnosis Normal in third trimester- Primary History of gastric bypass Bariatric [...]
--- OUTSIDE RECORDS SUMMARY | 2024-07-22 11:23 | External Medical Summary | Summary of Care ---
Author Name Unknown Organization [facility] Address [address] [place] [address] Phone [phone] Care Team Providers Care Forming Operator Name Role Phone Unavailable Primary Care Provider Unavailabl e Encounter Details Date Type Department Care Team (Late st Contact Info) Description 06/08/2024 Population Health External Data Unspecified Department Allergies Active Allergy Reactions Criticality Noted Date Comments Morphine And Codeine Nausea/vomiting Medium 08/10/2020 Nausea /dizziness Ondansetron 09/12/2021 Vomiting and nausea documented as of this encounter (statuses as of 06/08/2024) Medications meclizine (ANTIVERT) 25 MG TabletIndications :Vertigo [...] 1,000 mcgIndications:Intestinal postoperative nonabsorption 1000 mcg IM [id number] 12/30/2023 Active documented as of this encounter (statuses as of 06/08/2024) Active Problems Problem Noted Date Diagnosed Date [...] size on follow up ultrasound. Ask-a-doc to [facility] sent, recommended reassess 5-6 weeks or [...] as of this encounter (statuses as of 06/08/2024) Resolved Problems Problem Noted Date Diagnosed Date [...] as of this encounter (statuses as of 06/08/2024) Immunizations Name Administration Dates Next Due COVID-19 mRNA, LNP-s, No Pre serve, 2-Dose Series (Ciapple) 05/30/2020,05/09/2020 Meningococcal Conjugate Vaccine (Menactra/Menveo ) 11/15/2010,04/25/2008 [...] money to get more. Never true 11/22/2023 [place] Depression Scale Answer Date Recorded [place] Depression Scale Total 4 12/15/2023 The thought [...] Anita Gardner LPN documented in this encounter Plan of Treatment Upcoming Encounters Date Type Department Care Team (Late st Contact Info) Description 06/18/2024 4:30 PM EST Office Visit Gynecology/Obstetrics [facility] [address] [address] Cielo Yeager PA-C [address] [place] [address] 07/05/2024 1:10 PM EST Nutrition Services Nutrition & Weight Management, [facility] [address] [address] Lyly Strange RDN [address] [place] [address] 07/05/2024 2:00 PM EST Office Visit Nutrition & Weight Management, [facility] [address] [place] [address] Marisol Molina PA-C [address] [place] [address] Health Maintenance Due Date Last Done Comments [...]
--- OUTSIDE RECORDS SUMMARY | 2024-07-22 11:23 | External Medical Summary | Summary of Care ---
Author Name Unknown Organization [facility] Address [address] [facility] [address] Phone [phone] Care Team Providers Care Soil Science Teacher Name Role Phone Unavailable Primary Care Provider Unavailabl e Reason for Visit * Reason Comments Return Visit Encounter Details Date Type Department Care Team (Late st Contact Info) Description 06/30/2024 2:00 PM EST Office Visit Gynecology/Obstetric s [facility] [address] [place] [address] Dena Bustos CRNP [address] [place] [address] Normal in third trimester*; History of gastric [...] 1,000 mcgIndications:Intestinal postoperative nonabsorption 1000 mcg IM [id number] 12/30/2023 Active documented as of this encounter [...] size on follow up ultrasound. Ask-a-doc to [facility] sent, recommended reassess 5-6 weeks or [...] mRNA, LNP-s, No Pre serve, 2-Dose Series (Fantrotter) 05/30/2020,05/09/2020 DTP Vaccine 11/21/1997, 4,01/05/1993,10/31,1992 HIB PRP-T, [...] money to get more. Never true 11/22/2023 [place] Depression Scale Answer Date Recorded [place] Depression Scale Total 4 12/15/2023 The thought [...] work- drives an hour to get to [facility] for work every day. She can workfrom home on bad weather days typically, and is scheduled to [facility] the week of her due date. Advised this is ok, and to seek care at [facility] if at work and she feels she is in labor. Baby is active. She denies contractions or bleeding. GBS today. Requesting cervical check. Head Men'S Tennis Coach Documentation Provider requested vp client services. Name of vp client services: Hawa * Hawa Henriquez CMA - 06/30/2024 [...] EST Nutrition Services Nutrition & Weight Management, [facility] [address] [place] [address] Lyly Strange RDN [address] [place] [address] 07/05/2024 2:00 PM EST Office Visit Nutrition & Weight Management, [facility] [address] [place] [address] Marisol Molina PA-C [address] [place] [address] 07/06/2024 9:45 AM EST Office Visit Gynecology/Obstetrics [facility] [address] [place] [address] Dena Bustos CRNP [address] [place] [address] 07/13/2024 4:00 PM EST Office Visit Gynecology/Obstetrics [facility] [address] [place] [address] Rosenda Wren CNM [address] [place] [address] Pending Results Name Type Priority Associated Diagnoses [...]
--- OUTSIDE RECORDS SUMMARY | 2024-07-22 11:23 | External Medical Summary | Summary of Care ---
Author Name Unknown Organization [facility] Address [address] [place] [facility] [place] [address] Phone [phone] Care Team Providers Care Supervisor Open Hearth Stockyard Name Role Phone Unavailable Primary Care Provider Unavailabl e Reason for Visit * Reason Comments Return Visit Encounter Details Date Type Department Care Team (Late st Contact Info) Description 06/18/2024 4:30 PM EST Office Visit Gynecology/Obstetric s [facility] [address] [place] [address] Cielo Yeager PA-C [address] [place] [address] Normal in first trimester*; History of gastric bypass; Unspecified ovarian cyst, left side; Antepartum anemia complicating ; HSV (herpes simplex virus) infection Allergies Active Allergy Reactions Criticality Noted Date Comments Morphine And Codeine Nausea/vomiting Medium 08/10/2020 Nausea /dizziness Ondansetron 09/12/2021 Vomiting and nausea documented as of this encounter (statuses as of 06/19/2024) Medications meclizine (ANTIVERT) 25 MG TabletIndication s:Vertigo 1 by mouth in am as needed for motion sickness 90 Tab 01/15/20 18 Active Vitron-C 65-125 MG Oral Tablet (Iron-Vitamin C 65-125 mg per tab) Take 1 Tablet by mouth in the morning. Active Bariatric Multivitamins/Ir on Oral Capsule Take by mouth. Active B1 100 MG Oral Tablet Take by mouth. Active OneTouch Ultra 2 w/Device KitIndications:H istory of gastric bypass Use to check sugars 4 times daily (fasting in the AM and 3 other times throughout the day, one hour following breakfast, lunch, and dinner). 1 Kit 4 10:23 AM EST 04/01/20 24 Active Calcium 250 MG Oral Capsule Take by mouth. Unsure of dosage Active Ventolin HFA 108 (90 Base) MCG/ACT Inhalation Aerosol SolutionIndicati ons:Acute bronchospasm Inhale 2 Puffs by mouth every 4 hours as needed for Wheezing, Shortness of Breath or Cough. 18 g 04/24/20 24 Active Breast PumpIndications: Breast feeding status of mother Use as directed. 1 Each 04/30/20 24 Active valACYclovir HCl 500 MG Oral Tablet (Valtrex)Indicat ions:HSV (herpes simplex virus) infection Take 1 Tablet by mouth in the morning and 1 Tablet before bedtime, until gone. 60 Tablet 1 06/18/19 25 Active valACYclovir HCl 500 MG Oral Tablet (Valtrex)Indicat ions:HSV (herpes simplex virus) infection Take 1 Tablet by mouth in the morning and 1 Tablet before bedtime. Until gone.. 60 Tablet 1 06/18/19 25 025 Discontinued Hospital, Clinic, or Other Facility Administered Medication Ordered Dose Route Frequency Start Date End Date Status vitamin b-12 (Cyanocobalamin) inj 1,000 mcgIndications:Intestinal postoperative nonabsorption 1000 mcg IM [id number] 12/30/2023 Active documented as of this encounter (statuses as of 06/19/2024) Active Problems Problem Noted Date Diagnosed Date [...] size on follow up ultrasound. Ask-a-doc to [facility] sent, recommended reassess 5-6 weeks or [...] as of this encounter (statuses as of 06/19/2024) Resolved Problems Problem Noted Date Diagnosed Date [...] as of this encounter (statuses as of 06/19/2024) Immunizations Name Administration Dates Next Due COVID-19 mRNA, LNP-s, No Pre serve, 2-Dose Series (Tengaged) 05/30/2020,05/09/2020 Meningococcal Conjugate Vaccine (Menactra/Menveo ) 11/15/2010,04/25/2008 [...] money to get more. Never true 11/22/2023 [place] Depression Scale Answer Date Recorded [place] Depression Scale Total 4 12/15/2023 The thought [...] Sign Reading Time Taken Comments Blood Pressure 104/62 06/18/2024 4:28 PM EST Pulse - - Temperature - - Respiratory Rate - - Oxygen Saturation - - Inhaled Oxygen Concentration - - Weight 87.1 kg (192 lb) 06/18/2024 4:28 PM EST Height 162.6 cm (5' 4") 06/18/2024 4:28 PM EST Body Mass Index 32.96 06/18/2024 4:28 PM EST documented in this [...] Progress Notes * Cielo Yeager PA-C - 06/18/2024 4:43 PM EST 35w2d Occasional round ligament pain. Denies contractions, LOF, VB. Pos fm. 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 Asking about suppression. Advised okay to take if she prefers. Would like to avoid even oral outbreak and reduce vertical transmission. GBS next visit RTC in 1 week Cielo Yeager PA-C documented in this encounter Nursing Notes * Zuly Chen RN - 06/18/2024 4:29 PM EST Patient here for GISSELLE 35w2d + FM No concerns Zuly Chen RN documented in this encounter Plan of Treatment Upcoming Encounters Date Type Department Care Team (Late st Contact Info) Description 07/05/2024 1:10 PM EST Nutrition Services Nutrition & Weight Management, [facility] [address] [address] Lyly Strange RDN [address] [place] [address] 07/05/2024 2:00 PM EST Office Visit Nutrition & Weight Management, [facility] [address] [place] [address] Marisol Molina PA-C [address] [place] [address] Health Maintenance Due Date Last Done Comments [...] left side Antepartum anemia complicating Anemia, antepartum HSV (herpes simplex virus) infection Herpes simplex without mention of complication documented in this encounter Additional Health Concerns [...]
--- OUTSIDE RECORDS SUMMARY | 2024-07-22 11:23 | External Medical Summary ---
Author Name Unknown Address Unknown Organization K01:[facility] [place] - [facility] [address] [place] [address] Laboratory Report Ordering Provider Test Date Status ROSSY HENDRICKS 06/30/2024 14:22:58 Final Observation Date Value Abnormality Reference (Units ) Status Streptococcus agalactiae DNA [Presence] in Specimen by YOLA with probe detection 06/30/2024 14:22:58 Negative Negative Final No Group B Streptococcus det ected by culture-enhanced PCR (amplified probe). GBS GBSCT - [facility] 06/30/2024 14:22:58 0.0 Final GBS SPCCT - [facility] 06/30/2024 14:22:58 32.7 Final Performing Location [facility] [place] - [address] [place] [address]
--- OUTSIDE RECORDS SUMMARY | 2024-07-22 11:23 | External Medical Summary | Summary of Care ---
Author Name Unknown Organization [facility] Address [address] [facility] [address] Phone [phone] Care Team Providers Care Manager Women Name Role Phone Unavailable Primary Care Provider Unavailabl e Reason for Visit * Reason Onset Date Comments 07/07/2024 Encounter Details Date Type Department Care Team (Late st Contact Info) Description 07/07/2024 Telephone Gynecology/Obstetrics [facility] [address] [place] [id number] Dena Bustos CRNP [address] [facility] [place] [phone] Allergies Active Allergy Reactions Criticality Noted Date Comments Morphine And Codeine Nausea/vomiting Medium 08/10/2020 Nausea /dizziness Ondansetron 09/12/2021 Vomiting and nausea documented as of this encounter (statuses as of 07/07/2024) Medications meclizine (ANTIVERT) 25 MG TabletIndications :Vertigo [...] 1,000 mcgIndications:Intestinal postoperative nonabsorption 1000 mcg IM [id number] 12/30/2023 Active documented as of this encounter (statuses as of 07/07/2024) Active Problems Problem Noted Date Diagnosed Date [...] size on follow up ultrasound. Ask-a-doc to [facility] sent, recommended reassess 5-6 weeks or with [...] as of this encounter (statuses as of 07/07/2024) Resolved Problems Problem Noted Date Diagnosed Date [...] as of this encounter (statuses as of 07/07/2024) Immunizations Name Administration Dates Next Due COVID-19 mRNA, LNP-s, No Pre serve, 2-Dose Series (Sarata) 05/30/2020,05/09/2020 Meningococcal Conjugate Vaccine (Menactra/Menveo ) 11/15/2010,04/25/2008 [...] money to get more. Never true 11/22/2023 [place] Depression Scale Answer Date Recorded [place] Depression Scale Total 4 12/15/2023 The thought [...] encounter Miscellaneous Notes * Telephone Encounter - Hawa Henriquez CMA - 07/07/2024 1:12 PM EST FMLA papers signed, faxed and placed in triage. documented in this encounter Plan of Treatment Upcoming Encounters Date Type Department Care Team (Late st Contact Info) Description 07/09/2024 5:00 PM EST Office Visit Gynecology/Obstetrics [facility] [address] [place] [address] Cielo Yeager PA-C [address] [place] [address] 07/13/2024 4:00 PM EST Office Visit Gynecology/Obstetrics [facility] [address] [place] [address] Rosenda Wren CNM [address] [place] [address] Health Maintenance Due Date Last Done Comments [...]
--- OUTSIDE RECORDS SUMMARY | 2024-07-22 11:23 | External Medical Summary | Summary of Care ---
Author Name Unknown Organization [facility] Address [address] [facility] [place] [address] Phone [phone] Care Team Providers Care Smoke Eater Name Role Phone Unavailable Primary Care Provider Unavailabl e Encounter Details Date Type Department Care Team (Late st Contact Info) Description 05/04/2024 Telephone [facility]cology[facility] [address] [place] [address] Kiera Rios PA-C [address] [place] [address] Allergies Active Allergy Reactions Criticality Noted Date Comments Morphine And Codeine Nausea/vomiting Medium 08/10/2020 Nausea /dizziness Ondansetron 09/12/2021 Vomiting and nausea documented as of this encounter (statuses as of 05/21/2024) Medications meclizine (ANTIVERT) 25 MG TabletIndications :Vertigo [...] 1,000 mcgIndications:Intestinal postoperative nonabsorption 1000 mcg IM [id number] 12/30/2023 Active documented as of this encounter (statuses as of 05/21/2024) Active Problems Problem Noted Date Diagnosed Date [...] size on follow up ultrasound. Ask-a-doc to [facility] sent, recommended reassess 5-6 weeks [...] as of this encounter (statuses as of 05/21/2024) Resolved Problems Problem Noted Date Diagnosed Date [...] as of this encounter (statuses as of 05/21/2024) Immunizations Name Administration Dates Next Due COVID-19 mRNA, LNP-s, No Pre serve, 2-Dose Series (Voltari) 05/30/2020,05/09/2020 Meningococcal Conjugate Vaccine (Menactra/Menveo ) 11/15/2010,04/25/2008 [...] money to get more. Never true 11/22/2023 [place] Depression Scale Answer Date Recorded [place] Depression Scale Total 4 12/15/2023 The thought [...] encounter Miscellaneous Notes * Telephone Encounter - Gia Zapata LPN - 05/04/2024 8:28 AM EST ----- Message from Kiera Rios sent at 05/04/2024 7:59 AM EST ----- Please inform patient her 3rd trimester labs were WNL to include RPR and CBC. Thanks! Kiera Rios PA-C documented in this encounter Plan of Treatment Upcoming Encounters Date Type Department Care Team (Late st Contact Info) Description 05/31/2024 3:45 PM EST Nurse Only Nutrition & Weight Management, [facility] [address] [facility] [place] [address] Jomar, Nurse Gi Nutrition [facility] [address] [facility] [place] [address] 06/09/2024 3:00 PM EST Office Visit Gynecology/Obstetric s [facility] [address] [facility] [place] [address] Dena Bustos CRNP [facility] [place] [address] 07/05/2024 1:10 PM EST Nutrition Services Nutrition & Weight Management, [facility] [address] [facility] [place] [address] Lyly Strange RDN [address] [place] [address] 07/05/2024 2:00 PM EST Office Visit Nutrition & Weight Management, [facility] [address] [facility] [place] [address] Marisol Molina PA-C [address] [facility] [place] [address] Health Maintenance Due Date Last Done Comments [...]
[2024-07-22] MEDS: LACTATED RINGER'S 1,000 ML IV PRN (16:03)
[2024-07-22] MEDS ORDERED: SODIUM CHLORIDE 0.9% PF INJ 10 ML VIAL EPI PRN (17:28)
[2024-07-22] MEDS ORDERED: fentANYL 2 MCG/ML BUPIVacaine 0.125%-NSS 100ML BAG EPI PRN (17:28)
[2024-07-22] MEDS ORDERED: NALOXONE HCL 0.4 MG/1 ML VIAL/CARP IV PRN (17:28)
[2024-07-22] MEDS ORDERED: LIDOCAINE 2% MPF LOCAL 5 ML VIAL EPI PRN (17:28)
[2024-07-22] MEDS ORDERED: NALOXONE HCL 1 MG in SODIUM CHLORIDE 0.9% 1,000 ML IV PRN (17:28)
[2024-07-22] MEDS ORDERED: NALBUPHINE HCL INJ 10 MG/ML AMP IV PRN (17:28)
[2024-07-22] MEDS ORDERED: BUPIVACAINE 0.25% PF 30 ML VIAL EPI PRN (17:28)
[2024-07-22] MEDS ORDERED: diphenhydrAMINE 50 MG/ML VIAL IV PRN (17:28)
[2024-07-22] MEDS ORDERED: ROPIVACAINE 0.5% PF 5 MG/ML 20 ML VIAL EPI PRN (17:28)
[2024-07-22] MEDS ORDERED: fentaNYL citrate PF 100 MCG/2 ML VIAL EPI PRN (17:28)
--- NOTE | 2024-07-22 17:28 | Anesthesiology Consultation ---
Date of Service July 22, 2024 Assessment & Plan Chart Review Chart Review: Acceptable Risk for Labor Epidural Consults Requested none History Height/Weight Height: 5 ft 4 in Weight: 90.718 kg Allergies Allergy/AdvReac Type Severity Reaction Status Date / Time codeine Allergy Mild Nausea Verified 01/01/22 20:30 ondansetron AdvReac Severe Nausea Verified 01/01/22 21:18 morphine AdvReac Intermediate Nausea Verified 01/01/22 20:30 Medications Home Medications Medication Instructions Recorded Confirmed Last Taken calcium 600 mg (as carbonate)-vit 1 tab PO DAILY 07/22/24 07/22/24 07/22/24 D3 10 mcg (400 unit)-minerals tablet cyanocobalamin (vitamin B-12) 3,000 mcg sublingual DAILY 07/22/24 07/22/24 07/22/24 3,000 mcg sublingual tablet ferrous sulfate 27 mg iron tablet 27 mg PO DAILY 07/22/24 07/22/24 07/18/24 vits no.124-ferrous fum 1 tab PO DAILY 07/22/24 07/22/24 07/22/24 27 mg iron-folic acid 800 mcg tablet ( Vitamin) Active Medications Generic Name Dose Route Start Last Admin Trade Name Freq PRN Reason Stop Dose Admin Lactated Ringer's 1,000 mls @ 125 mls/hr 07/22/24 08:13 07/22/24 16:37 Lr IV 07/23/24 08:12 125 mls/hr .Q8H PRN Infusion L&D Protocol Protocol Past Medical History Medical History (Updated 07/22/24 @ 10:29 by Mamie Mueller RN) H/O anxiety state H/O cold sores Vertigo Pneumonia GERD (gastroesophageal reflux disease) Asthma Acne Past Family History Family History Father Gallbladder disease Hypertension Grandmother Breast cancer Diabetes Heart disease Grandfather Colon cancer Past Surgical History Surgical History H/O gastric bypass Status post tonsillectomy and adenoidectomy Social History Smoking Status: Never smoker Do You Dip or Chew Tobacco: No Hx Alcohol Use: No Hx Substance Use: No substance use type: does not use Physical Exam Vital Signs Last Vital Signs Temp 36.7 C 07/22/24 15:34 Pulse 69 07/22/24 15:34 Resp 20 07/22/24 15:34 BP 107/70 07/22/24 15:34 Testing Laboratory Results 07/22/24 08:26
[2024-07-22] MEDS: ePHEDrine sulfate 50 MG/ML AMP IV PRN (17:53)
[2024-07-22] MEDS: fentANYL 2 MCG/ML BUPIVacaine 0.125%-NSS 100ML BAG ONE (17:57)
[2024-07-22] MEDS: LIDOCAINE 2%/EPINEPHRINE 1:200,000 20 ML PF ONE (17:57)
[2024-07-22] MEDS: OXYTOCIN 30 UNITS/NSS 30 UNITS/500 ML BAG IV PRN (18:16)
[2024-07-22] MEDS: fentaNYL citrate PF 100 MCG/2 ML VIAL EPI STA (18:42)
[2024-07-22] MEDS: LIDOCAINE 2%/EPINEPHRINE 1:200,000 20 ML PF EPI STA (18:42)
[2024-07-22] MEDS: BUPIVACAINE 0.25% PF 30 ML VIAL EPI STA (18:42)
[2024-07-22] MEDS: SODIUM CHLORIDE 0.9% PF INJ 10 ML VIAL EPI STA (18:43)
[2024-07-22] MEDS: ePHEDrine sulfate 50 MG/ML AMP ONE (19:04)
[2024-07-22] MEDS: BUPIVACAINE 0.25% PF 30 ML VIAL ONE (19:04)
[2024-07-22] MEDS: SODIUM CHLORIDE 0.9% PF INJ 10 ML VIAL ONE (19:04)
[2024-07-22] MEDS: fentaNYL citrate PF 100 MCG/2 ML VIAL ONE (19:04)
[2024-07-22] MEDS: METHYLERGONOVINE MALEATE 0.2 MG/ML AMP IM ONE (20:43)
[2024-07-22] MEDS: miSOPROStoL 200 MCG TAB PR ONE (20:52)
[2024-07-22] MEDS ORDERED: HYDROCORTISONE ACETATE 25 MG SUPP PR PRN (21:00)
[2024-07-22] MEDS ORDERED: oxyCODONE/ACETAMINOPHEN 5mg/325mg TAB PO PRN (21:00)
[2024-07-22] MEDS ORDERED: ACETAMINOPHEN W/CODEINE #3 1 TAB PO PRN (21:00)
[2024-07-22] MEDS ORDERED: bisacodyL 10 MG SUPP PR PRN (21:00)
[2024-07-22] MEDS ORDERED: ACETAMINOPHEN 325 MG TAB PO PRN (21:00)
[2024-07-22] MEDS ORDERED: IBUPROFEN 600 MG TAB PO PRN (21:00)
--- NOTE | 2024-07-22 21:05 | Delivery Summary ---
Vaginal Delivery Summary Date of Service July 22, 2024 Vaginal Delivery Summary Patient is a 3 para 2. Well dated with a first trimester ultrasound. Brought in at 40 weeks and 1 day gestation for induction. Blood type is be positive. On admission patient had a good monitor strip with accelerations and good nwwe-ez-enda variability. She was given p.o. Cytotec 50 mcg 2 doses by 4 hours. She then began to go into active labor. At about 5 cm she requested and was given epidural for pain control. After that she was started on IV Pitocin. Pitocin had to be turned back with positioning due to some variable decelerations. However throughout the strip she continued to have good iaiw-fi-eggz variability with periodic accelerations. And under 20 minutes she crowned the . Direct occiput anterior position. Patient was delivered over intact perineum. was suctioned through the mouth and the nose. Shoulders were delivered without difficulty. There was no nuchal cord. Cord was allowed to pulse for 1 full minute. Cord was then clamped cut by the father. Cord blood was taken. With IV Pitocin running the placenta was removed intact. 0.2 of Methergine was given in the upper thigh. Inspection of the perineum revealed a superficial sulcus laceration at 10:00. And a superficial perineal laceration at 5:00. Both of these lacerations were repaired with a running 2-0 Vicryl suture. Following the repair sponges were removed from the vagina. 800 mcg of Cytotec was inserted rectally. The bladder was drained with a red rubber Curtis catheter. Quantitative blood loss was 145 mL. Patient Toller procedure well.
--- NOTE | 2024-07-22 21:26 | Anesthesia Procedure Note ---
Date of Service July 22, 2024 Anesthesia Post Epidural Note Vital Signs Vital Signs: Temp Pulse Resp BP Pulse Ox O2 Del Method 36.5 C 69 18 112/70 100 Room Air 07/22/24 19:10 07/22/24 21:25 07/22/24 20:55 07/22/24 21:25 07/22/24 20:59 07/22/24 19:10 Pain Intensity Posterior Abdomen: Pain Intensity: 0 Notes Mental Status: alert / awake / arousable Nausea / Vomiting: adequately controlled Pain: adequately controlled Airway Patency, RR, SpO2: stable & adequate BP & HR: stable & adequate Hydration State: stable & adequate Neuraxial Anesthesia: was administered and sensory block is resolving Anesthetic Complications: no major complications apparent and Pt Satisfied with anesthetic care Epidural: Removed without complications and With tip intact
[2024-07-22] MEDS: ACETAMINOPHEN 500 MG TAB PO PRN (21:52)
[2024-07-22] MEDS: DOCUSATE SODIUM 100 MG CAP PO SCH (22:35)
[2024-07-22] MEDS: DIPHTHER/TETAN/PERTUS Vaccine (Tdap, Adol/Adult) 0.5mL IM ONE (22:35)
[2024-07-23 07:20] LABS: Hematocrit (blood only) 33.4 % (37.0-47.0); Hemoglobin 11.2 g/dl (12.0-16.0); Mean Corpuscular Hemoglobin 29.2 pg (25.0-34.0); Mean Corpuscular Hgb Conc 33.5 g/dL (32.0-36.0); Mean Corpuscular Volume 87.2 fL (80.0-100.0); Mean Platelet Volume 9.8 fL (9.4-12.4); Platelet Count 202 K/uL (130-400); RDW Standard Deviation 38.5 fL (36.4-46.3); Red Blood Count 3.83 M/uL (4.20-5.40); White Blood Count 14.04 K/ul (4.8-10.8)
[2024-07-23] MEDS: BENZOCAINE 20% SPRY 85 APPLN/85 GM CAN EXT PRN (08:37)
[2024-07-23] MEDS: PRENATAL VITAMIN 1 TAB PO SCH (08:37)
--- NOTE | 2024-07-23 08:53 | Obstetrical Progress Note ---
Date of Service July 23, 2024 Subjective Ambulation: ambulating normally Voiding: no voiding problems Passing Gas:: Yes Diet Tolerance:: regular diet Lochia:: Small Feeding Type:: breast feeding Current Pain Level(1-10): 0 doing well. wants to go home tonight. Physical Exam Constitutional WD/WN, vitals as above Gastrointestinal (Abdomen) Inspection/Auscultation: abdomen normal to inspection abdomen soft and non-tender, fundus firm below U. Musculoskeletal Extremities: extremities normal to inspection Skin no rashes, warm and dry Neurologic patellar DTR's 2+ bilat, sensation intact Psychiatric A+Ox3, euthymic affect Results & Data Vital Signs (Past 12 Hours) Vital Signs Temp Pulse Pulse Resp BP BP Pulse Ox 07/23/24 04:24 36.5 C 74 16 105/68 07/22/24 23:27 36.3 C L 75 14 116/75 07/22/24 22:55 18 07/22/24 22:25 18 07/22/24 22:25 82 07/22/24 22:25 114/72 07/22/24 22:10 76 07/22/24 22:10 112/69 07/22/24 21:55 18 07/22/24 21:55 81 07/22/24 21:55 117/70 07/22/24 21:40 18 07/22/24 21:40 66 07/22/24 21:40 121/83 07/22/24 21:25 18 07/22/24 21:25 69 07/22/24 21:25 112/70 07/22/24 21:10 18 07/22/24 21:10 70 07/22/24 21:10 109/70 07/22/24 20:59 100 07/22/24 20:59 81 07/22/24 20:55 18 07/22/24 20:54 73 07/22/24 20:54 110/66 O2 Del Method 07/23/24 04:24 Room Air 07/22/24 23:27 Room Air 07/22/24 22:55 07/22/24 22:25 07/22/24 22:25 07/22/24 22:25 07/22/24 22:10 07/22/24 22:10 07/22/24 21:55 07/22/24 21:55 07/22/24 21:55 07/22/24 21:40 07/22/24 21:40 07/22/24 21:40 07/22/24 21:25 07/22/24 21:25 07/22/24 21:25 07/22/24 21:10 07/22/24 21:10 07/22/24 21:10 07/22/24 20:59 07/22/24 20:59 07/22/24 20:55 07/22/24 20:54 07/22/24 20:54 Laboratory Results Laboratory Results - last 72 hr 07/22/24 07/23/24 08:26 07:04 WBC 11.97 H 14.04 H RBC 3.52 L 3.83 L Hgb 10.5 L 11.2 L Hct 31.0 L 33.4 L MCV 88.1 87.2 MCH 29.8 29.2 MCHC 33.9 33.5 RDW Std Deviation 38.4 38.5 RDW Coeff of Landon 12.0 12.0 Plt Count 225 202 MPV 9.5 9.8 Treponema pallidum Ab Negative
[2024-07-23 16:42] VITALS: RESP 16; TEMP 97.9
[2024-07-23 18:53] VITALS: BP 108/69; PULSE 83; O2SAT 98
[2024-07-23] MEDS: bisacodyL 5 MG TABEC PO SCH (21:17)
== END 2024-07-23 21:50 | disposition home or self-care (01) | DRG 807 ==
LOC: 4S1 07:21 → 4E2 23:24